=== PATIENT | female | born 1935 | race Caucasian/White ===

== ENCOUNTER → 2017-04-15 | Outpatient (CLI) | payer MEDICARE, BC ==
--- NOTE | 2017-04-15 12:41 | CT ---
EXAMINATION TYPE: CT chest wo con DATE OF EXAM: 04/15/2017 11:54 AM COMPARISON: 10/28/2016 and 10/17/2014 HISTORY: 82-year-old female follow up nodules. Coughing and shortness of breath. TECHNIQUE: Contiguous axial scanning of the chest without IV contrast. Coronal and sagittal reconstru ctions performed. CT DLP: 180.1 mGycm Automated exposure control for dose reduction was used. FINDINGS: The heart is normal size without pericardial effusion. Coronary vessel calcifications are remarkable for coronary artery disease. Mild atherosclerotic arch calcifications with conventional arch vessel branching anatomy. No thoracic lymphadenopathy by CT size criteria. Subpleural groundglass and interstitial changes particularly in the right lower lobe at the midlung l evel with minimal subpleural reticulations peripheral left upper lobe remain unchanged from 4. Biapical pleural parenchymal scarring also unchanged. The previously seen inferior lingular nodules have resolved. No new consolidation or pleural effusion. Visualized upper abdomen shows moderate atherosclerotic calcifications within the abdominal aorta and cholecystectomy clips. Bones: Right shoulder arthroplasty with the patient's right arm down. The humeral head component appe ars anteriorly subluxed articulating with the coracoid process. Degenerative changes at the left shou lder. No osseous destructive process. IMPRESSION: 1. THE PREVIOUSLY SEEN INFERIOR LINGULAR NODULES HAVE RESOLVED. 2. THE EXTENSIVE INTERSTITIAL CHANGES PREDOMINANTLY IN THE RIGHT MIDLUNG REMAIN UNCHANGED FROM 2013 COMPATIBLE WITH CHRONIC POST INFECTIOUS/INFLAMMATORY SEQUELA. NO ACUTE PULMONARY PROCESS. 3. RIGHT TOTAL SHOULDER ARTHROPLASTY. NOTE THAT THE HUMERAL HEAD COMPONENT IS ANTERIORLY SUBLUXED/DIS LOCATED, ARTICULATING WITH THE CORACOID PROCESS.
== END | disposition home or self-care (01) ==
LOC: RADCTMAIN 11:36
PROVIDERS: ATTEND Internal Medicine Pulmonary Disease
DX: R91.8 Other nonspecific abnormal finding of lung field (principal)
CPT/HCPCS: 71250

== ENCOUNTER → 2017-12-09 | Outpatient (CLI) | payer BC, MEDICARE ==
--- NOTE | 2017-12-09 12:30 | CT ---
EXAMINATION TYPE: CT chest wo con DATE OF EXAM: 12/09/2017 COMPARISON: 04/15/2017 and 10/17/2014 HISTORY: Pulmonary Nodule CT DLP: 353 mGycm. Automated Exposure Control for Dose Reduction was Utilized. TECHNIQUE: CT scan of the thorax is performed without IV contrast. FINDINGS: LUNGS: As discussed on the prior exam the subpleural reticular and groundglass opacities within the r ight lung apex, right upper lobe and right lower lobe are unchanged dating back to 2013 and likely re present fibrosis. Left apical pleural parenchymal scarring is also seen. No new pulmonary nodules are identified. The lungs are grossly clear, there is no concerning parenchymal mass or nodule identifie d. There is no pleural effusion or pneumothorax seen. The tracheobronchial tree is patent. MEDIASTINUM: Lack of IV contrast is noted to limit evaluation for mediastinal and especially hilar ad enopathy. There are no definitive greater than 1 cm hilar or mediastinal lymph nodes. No cardiomega ly or pericardial effusion is seen. Heart is normal limits of size. Moderate coronary artery calcific ations are noted. OTHER: There is overall low attenuation of the ascending thoracic aorta internally which can be indic ative of anemia. Correlation with CBC is recommended. Cholecystectomy clips are noted within the righ t upper quadrant. Right shoulder arthroplasty is again noted. Anterior subluxation is chronic. Degene rative changes of the left glenohumeral joint and thoracic spine are similar to the prior. No new waleska picious osseous lesion. IMPRESSION: 1. No new pulmonary nodules or adenopathy given the limitation of lack of intravenous contrast. 2. Subpleural reticular interstitial opacities unchanged from 2013 are favored to represent pulmonary fibrosis. 3. Aortic luminal low density may indicate anemia. Correlate with CBC. 4. Anterior subluxation of the right shoulder arthroplasty, unchanged from the prior of 04/15/2017.
== END | disposition home or self-care (01) ==
LOC: RADCTMAIN 11:20
PROVIDERS: ATTEND Internal Medicine Pulmonary Disease
DX: J98.4 Other disorders of lung (principal); S43.081A Other subluxation of right shoulder joint, initial encounter; R91.8 Other nonspecific abnormal finding of lung field
CPT/HCPCS: 71250

== ENCOUNTER → 2018-01-07 | Outpatient (CLI) | payer MEDICARE ==
--- NOTE | 2018-01-08 11:45 | ECHOF ---
Referral Reason:Fatigue R53.83 MEASUREMENTS -------- HEIGHT: 165.1 cm WEIGHT: 54.4 kg BP: RVIDd: 3.0 cm (< 3.3) IVSd: 1.0 cm (0.6 - 1.1) LVIDd: 3.7 cm (3.9 - 5.3) LVPWd: 0.9 cm (0.6 - 1.1) IVSs: 1.3 cm LVIDs: 3.4 cm LVPWs: 1.3 cm LAESV Index (A-L): 28.19 ml/m Ao Diam: 3.3 cm (2.0 - 3.7) AV Cusp: 1.3 cm (1.5 - 2.6) LA Diam: 2.6 cm (2.7 - 3.8) MV EXCURSION: 17.484 mm (> 18.000) MV EF SLOPE: 85 mm/s (70 - 150) EPSS: 1.1 cm MV E Marquez: 0.64 m/s MV DecT: 159 ms MV A Marquez: 0.83 m/s MV E/A Ratio: 0.77 RAP: 5.00 mmHg RVSP: 30.18 mmHg FINDINGS -------- Sinus rhythm. This was a technically good study. The left ventricular size is normal. There is mild concentric left ventricular hypertrophy. Overa ll left ventricular systolic function is low-normal with, an EF between 50 - 55 %. The right ventricle is normal in size. Normal LA size by volume 22+/-6 ml/m2. The right atrial size is normal. There is mild aortic valve sclerosis. Mild mitral annular calcification present. Mild mitral regurgitation is present. Mild tricuspid regurgitation present. There is no evidence of pulmonary hypertension. The right v entricular systolic pressure, as measured by Doppler, is 30.18mmHg. There is no pulmonic regurgitation present. The aortic root size is normal. There is no pericardial effusion. CONCLUSIONS -------- 1. Sinus rhythm. 2. This was a technically good study. 3. The left ventricular size is normal. 4. There is mild concentric left ventricular hypertrophy. 5. Overall left ventricular systolic function is low-normal with, an EF between 50 - 55 %. 6. Normal LA size by volume 22+/-6 ml/m2. 7. There is mild aortic valve sclerosis. 8. Mild mitral annular calcification present. 9. Mild mitral regurgitation is present. 10. Mild tricuspid regurgitation present. 11. There is no evidence of pulmonary hypertension. 12. There is no pulmonic regurgitation present. 13. The aortic root size is normal. 14. There is no pericardial effusion. PRODUCTION OPERATIONS ENGINEER: Gunjan Chapin RDCS
== END | disposition home or self-care (01) ==
LOC: RADECHMAIN 13:06
PROVIDERS: ATTEND Family Medicine
DX: I08.3 Combined rheumatic disorders of mitral, aortic and tricuspid valves (principal); Z88.5 Allergy status to narcotic agent; Z88.8 Allergy status to other drugs, medicaments and biological substances
CPT/HCPCS: 93306

== ENCOUNTER 2018-12-27 17:40 | Emergency (ER) | payer MEDICARE, BC ==
[2018-12-27 17:55] VITALS: TEMP 98.3
--- NOTE | 2018-12-27 18:16 | ED ---
General Adult HPI - General Chief complaint: Fall Stated complaint: Fall from being dizzy, head lac Time Seen by Provider: 12/27/18 18:02 Source: patient, family, RN notes reviewed, old records reviewed Mode of arrival: wheelchair Limitations: no limitations - History of Present Illness Initial comments: 83-year-old female presents status post ground-level fall. Patient fell hit her head on a rocking chair. No loss consciousness. Patient is on anticoagulation, currently taking Xarelto, history of DVT. Patient denies significant neck pain. She ambulated after the fall. She is complaining of some mild pain in her left hip. No other injuries reported. No vision changes. No focal numbness or weakness. No chest pain. Patient is on home oxygen, she states she has history of dizzy spells, this is not new. She was not wearing oxygen at the time of the fall, she believes this may have contributed. - Related Data Home Medications Medication Instructions Recorded Confirmed Famotidine [Pepcid] 20 mg PO BID 06/18/15 12/27/18 Levothyroxine Sodium [Synthroid] 125 mcg PO DAILY 06/18/15 12/27/18 Rivaroxaban [Xarelto] 20 mg PO DAILY 06/18/15 12/27/18 Allergies Allergy/AdvReac Type Severity Reaction Status Date / Time morphine Allergy Unknown Verified 12/27/18 19:01 nickel Allergy Unknown Verified 12/27/18 19:01 Review of Systems ROS Statement: Those systems with pertinent positive or pertinent negative responses have been documented in the HPI. ROS Other: All systems not noted in ROS Statement are negative. Past Medical History Past Medical History: Syncope Additional Past Medical History / Comment(s): PE, pulmonary fibrosis History of Any Multi-Drug Resistant Organisms: None Reported Past Surgical History: Adenoidectomy, Back Surgery, Joint Replacement, Orthopedic Surgery, Tonsillectomy Additional Past Surgical History / Comment(s): thyroid Past Psychological History: No Psychological Hx Reported Smoking Status: Never smoker Past Alcohol Use History: None Reported Past Drug Use History: None Reported General Exam Limitations: no limitations General appearance: alert, in no apparent distress Head exam: Present: normocephalic. Absent: atraumatic (1 cm laceration, left forehead) Eye exam: Present: normal appearance, PERRL, EOMI ENT exam: Present: normal exam, TM's normal bilaterally Neck exam: Present: normal inspection, full ROM. Absent: tenderness, meningismus Respiratory exam: Present: normal lung sounds bilaterally. Absent: respiratory distress, wheezes Cardiovascular Exam: Present: regular rate, normal rhythm GI/Abdominal exam: Present: soft. Absent: distended, tenderness Extremities exam: Present: normal inspection, normal capillary refill. Absent: pedal edema Back exam: Present: normal inspection, full ROM Neurological exam: Present: alert, oriented X3, CN II-XII intact. Absent: motor sensory deficit Psychiatric exam: Present: normal affect, normal mood Skin exam: Present: warm, dry, other (1 cm laceration, left forehead) Course Vital Signs 12/27/18 17:52 Temperature 98.3 F Pulse Rate 77 Respiratory 18 Rate Blood Pressure 153/72 O2 Sat by Pulse 100 Oximetry Procedures - Laceration Laceration #1 Consent Obtained: verbal consent Indication: laceration Site: scalp Description: linear Depth: simple, single layer Anesthetic Used: lidocaine 1% Anesthesia Technique: local infiltration Amount (mls): 5 Pre-repair: wound explored, irrigated extensively Type of Sutures: nylon Size of Sutures: 6-0 Number of Sutures: 3 Technique: simple, interrupted Patient Tolerated Procedure: well Medical Decision Making - Medical Decision Making 83-year-old female status post fall with head injury, no loss consciousness, patient is on anticoagulation, history of DVT. Head CT obtained, negative for intracranial hemorrhage or mass effect, CT cervical spine negative for fracture subluxation. X-ray of the pelvis is obtained as patient had some minor left hip pain, this is negative for acute bony abnormality. 3 sutures are placed in laceration. Patient tolerates procedure well. Antibiotic dressing placed. Patient has family at home and can be observed in the next 24 hours. They will be discharged home at this time, return for suture removal in 5-7 days. Critical Care Time Critical Care Time: Yes Disposition Clinical Impression: Fall, Concussion, Laceration of forehead Disposition: HOME SELF-CARE Condition: Stable Instructions (If sedation given, give patient instructions): Fall Prevention for Older Adults (ED), Care For Your Stitches (ED), Laceration (ED), Concussion (ED) Additional Instructions: Please observed for alterations in mental status, vomiting, headache over the next 24 hours, return in 5-7 days for suture removal. Is patient prescribed a controlled substance at d/c from ED?: No Referrals: Stephen Harvey MD [Primary Care Provider] - 1-2 days Time of Disposition: 19:47
--- NOTE | 2018-12-27 18:45 | XR ---
EXAMINATION TYPE: XR pelvis AP view DATE OF EXAM: 12/27/2018 COMPARISON: NONE HISTORY: Fall. Pain. TECHNIQUE: Single view FINDINGS: Pelvic ring is intact. Proximal femurs and hip joints are intact. I see no fracture. Sacroi liac joints are intact. IMPRESSION: No acute abnormality of the pelvis.
--- NOTE | 2018-12-27 18:45 | CT ---
EXAMINATION TYPE: CT brain chaparrita wo con DATE OF EXAM: 12/27/2018 COMPARISON: CT brain 09/08/2017. CT cervical spine 02/26/2016. HISTORY: fall CT DLP: 1286.3 mGycm Automated exposure control for dose reduction was used. TECHNIQUE: CT scan of the head and cervical spine are performed without contrast. FINDINGS: There is cerebral cortical atrophy. There is no mass effect nor midline shift. There is n o sign of intracranial hemorrhage. Calvarium is intact. There is a few millimeter anterior subluxation of C3 in relation to C4. There is some fusion anomaly of C2 and C3 vertebral body. There is degenerative disc space narrowing in the cervical spine. There is no compression fracture. The skull base is intact. IMPRESSION: Cerebral atrophy. No acute intracranial abnormality. No change. Spondylotic changes in the cervical spine. No fracture seen. No change compared to old exam.
[2018-12-27] MEDS ORDERED: LIDOCAINE 1% INJ 10MG/ML (20 ML MDV) SQ ONE (18:52)
[2018-12-27 20:01] VITALS: BP 144/70; PULSE 76; RESP 16
== END 2018-12-27 19:59 | disposition home or self-care (01) ==
LOC: EC 17:40
DX: S06.0X0A Concussion without loss of consciousness, initial encounter (principal); S01.81XA Laceration without foreign body of other part of head, initial encounter; M25.552 Pain in left hip; R42 Dizziness and giddiness; Z86.718 Personal history of other venous thrombosis and embolism; Z86.711 Personal history of pulmonary embolism; Z99.81 Dependence on supplemental oxygen; Z79.01 Long term (current) use of anticoagulants; Z79.890 Hormone replacement therapy; Z79.899 Other long term (current) drug therapy; Z88.5 Allergy status to narcotic agent; Z88.8 Allergy status to other drugs, medicaments and biological substances; W19.XXXA Unspecified fall, initial encounter; W22.03XA Walked into furniture, initial encounter; Y92.009 Unspecified place in unspecified non-institutional (private) residence as the place of occurrence of the external cause
CPT/HCPCS: 72170; 72125; 70450; 99284; 12011; J2001

== ENCOUNTER 2019-04-07 23:51 | Inpatient (IN) | payer MEDICARE ==
--- NOTE | 2019-04-08 00:04 | ED ---
General Adult HPI <Virgil Ahuja - Last Filed: 04/08/19 01:04> <Roosevelt Arredondo - Last Filed: 04/08/19 03:54> - General Chief complaint: Fall Stated complaint: fall Time Seen by Provider: 04/07/19 23:55 - History of Present Illness Initial comments: Dictation was produced using [employer] dictation software. please excuse any grammatical, word or spelling errors. Chief Complaint: 83-year-old female past medical history of pulmonary embolus, pulmonary fibrosis sick. Presents after fall. History of Present Illness: Patient is a 83-year-old female. She was brought in by EMS. Patient allegedly tripped over her oxygen tubing. She fell backwards causing her to strike her head. Patient is a poor historian. She states that her left knee hurts her right hip hurts and her head hurts. Denies any neck pain. Patient denies any numbness and paresthesias to her extremities. Intrana angelika fentanyl by EMS. She is not sure if she lost consciousness. The ROS documented in this emergency department record has been reviewed and confirmed by me. Those systems with pertinent positive or negative responses have been documented in the HPI. All other systems are other negative and/or noncontributory. PHYSICAL EXAM: General Impression: Alert and oriented x3, not in acute distress, cachectic 6 HEENT: Normocephalic atraumatic, extra-ocular movements intact, pupils equal and reactive to light bilaterally, mucous membranes moist. Cardiovascular: Heart regular rate and rhythm, S1&S2 audible, no murmurs, rubs or gallops Chest: Lungs clear to auscultation bilaterally, no rhonchi, no wheeze, no rales Abdomen: Bowel sounds present, abdomen soft, non-tender, non-distended, no organomegaly Musculoskeletal: Pulses present and equal in all extremities, no peripheral edema, pain with flexion and extension of the left knee and manipulation of the right hip Motor: no focal deficits noted Neurological: CN II-XII grossly intact, no focal motor or sensory deficits noted Skin: Intact with no visualized rashes Psych: Normal affect and mood ED course: Old female presents with left knee, right hip and head pain status post mechanical fall. Vital signs upon arrival are within acceptable limits. Patient care signed out to Dr. Abbasi. EKG interpretation: Ventricular rate 70, normal sinus rhythm, [place] interval 142, care is 64, QTC 465. No [place] prolongation, no QTC prolongation, no ST or T-wave changes noted. Overall, this EKG is unremarkable (Virgil Ahuja) - Related Data Home Medications Medication Instructions Recorded Confirmed Famotidine [Pepcid] 20 mg PO BID 06/18/15 12/27/18 Levothyroxine Sodium [Synthroid] 125 mcg PO DAILY 06/18/15 12/27/18 Rivaroxaban [Xarelto] 20 mg PO DAILY 06/18/15 12/27/18 Allergies Allergy/AdvReac Type Severity Reaction Status Date / Time morphine Allergy Unknown Verified 04/08/19 00:06 nickel Allergy Unknown Verified 04/08/19 00:06 Review of Systems ROS Other: All systems not noted in ROS Statement are negative. <Virgil Ahuja - Last Filed: 04/08/19 01:04> ROS Other: All systems not noted in ROS Statement are negative. <Roosevelt Arredondo - Last Filed: 04/08/19 03:54> ROS Statement: Those systems with pertinent positive or pertinent negative responses have been documented in the HPI. Past Medical History Past Medical History: Syncope Additional Past Medical History / Comment(s): PE, pulmonary fibrosis History of Any Multi-Drug Resistant Organisms: None Reported Past Surgical History: Adenoidectomy, Back Surgery, Joint Replacement, Orthopedic Surgery, Tonsillectomy Additional Past Surgical History / Comment(s): thyroid Past Psychological History: No Psychological Hx Reported Smoking Status: Never smoker Past Alcohol Use History: None Reported Past Drug Use History: None Reported <Virgil Ahuja - Last Filed: 04/08/19 01:04> Course Vital Signs 04/07/19 04/08/19 23:59 02:34 Temperature 98.4 F 97.8 F Pulse Rate 80 84 Respiratory 18 17 Rate Blood Pressure 137/67 117/67 O2 Sat by Pulse 100 98 Oximetry Medical Decision Making - Lab Data Result diagrams: 04/08/19 00:30 04/08/19 00:30 <Virgil Ahuja - Last Filed: 04/08/19 01:04> - Lab Data Result diagrams: 04/08/19 00:30 04/08/19 00:30 <Roosevelt Arredondo - Last Filed: 04/08/19 03:54> - Medical Decision Making Receive this patient as a sign out, pending the results of her studies. The imaging studies show suspected infiltrate versus possible scarring. The patient does complain of having some dyspnea worse than her baseline, so given this will treat for suspected pneumonia. Case discussed with Dr. Harvey who will accept admission. (Roosevelt Arredondo) - Lab Data Lab Results 04/08/19 04/08/19 04/08/19 Range/Units 00:30 00:30 00:30 WBC 7.8 (3.8-10.6) k/uL RBC 3.94 (3.80-5.40) m/uL Hgb 11.4 (11.4-16.0) gm/dL Hct 36.7 (34.0-46.0) % MCV 93.1 (80.0-100.0) fL MCH 29.0 (25.0-35.0) pg MCHC 31.1 (31.0-37.0) g/dL RDW 13.3 (11.5-15.5) % Plt Count 208 (150-450) k/uL Neutrophils % 81 % Lymphocytes % 12 % Monocytes % 5 % Eosinophils % 1 % Basophils % 0 % Neutrophils # 6.3 (1.3-7.7) k/uL Lymphocytes # 1.0 (1.0-4.8) k/uL Monocytes # 0.4 (0-1.0) k/uL Eosinophils # 0.0 (0-0.7) k/uL Basophils # 0.0 (0-0.2) k/uL PT 12.5 H (9.0-12.0) sec INR 1.2 H (<1.2) Sodium 140 (137-145) mmol/L Potassium 4.4 (3.5-5.1) mmol/L Chloride 106 (98-107) mmol/L Carbon Dioxide 28 (22-30) mmol/L Anion Gap 6 mmol/L BUN 23 H (7-17) mg/dL Creatinine 0.62 (0.52-1.04) mg/dL Est GFR (CKD-EPI)AfAm >90 (>60 ml/min/1.73 sqM) Est GFR (CKD-EPI)NonAf 84 (>60 ml/min/1.73 sqM) Glucose 87 (74-99) mg/dL Calcium 8.7 (8.4-10.2) mg/dL Magnesium 1.9 (1.6-2.3) mg/dL Creatine Kinase 72 (30-135) U/L Urine Color Urine Appearance (Clear) Urine pH (5.0-8.0) Ur Specific [place] (1.001-1.035) Urine Protein (Negative) Urine Glucose (UA) (Negative) Urine Ketones (Negative) Urine Blood (Negative) Urine Nitrite (Negative) Urine Bilirubin (Negative) Urine Urobilinogen (<2.0) mg/dL Ur Leukocyte Esterase (Negative) Urine RBC (0-5) /hpf Urine WBC (0-5) /hpf Ur Squamous Epith Cells (0-4) /hpf Urine Bacteria (None) /hpf Urine Mucus (None) /hpf 04/08/19 Range/Units 01:33 WBC (3.8-10.6) k/uL RBC (3.80-5.40) m/uL Hgb (11.4-16.0) gm/dL Hct (34.0-46.0) % MCV (80.0-100.0) fL MCH (25.0-35.0) pg MCHC (31.0-37.0) g/dL RDW (11.5-15.5) % Plt Count (150-450) k/uL Neutrophils % % Lymphocytes % % Monocytes % % Eosinophils % % Basophils % % Neutrophils # (1.3-7.7) k/uL Lymphocytes # (1.0-4.8) k/uL Monocytes # (0-1.0) k/uL Eosinophils # (0-0.7) k/uL Basophils # (0-0.2) k/uL PT (9.0-12.0) sec INR (<1.2) Sodium (137-145) mmol/L Potassium (3.5-5.1) mmol/L Chloride (98-107) mmol/L Carbon Dioxide (22-30) mmol/L Anion Gap mmol/L BUN (7-17) mg/dL Creatinine (0.52-1.04) mg/dL Est GFR (CKD-EPI)AfAm (>60 ml/min/1.73 sqM) Est GFR (CKD-EPI)NonAf (>60 ml/min/1.73 sqM) Glucose (74-99) mg/dL Calcium (8.4-10.2) mg/dL Magnesium (1.6-2.3) mg/dL Creatine Kinase (30-135) U/L Urine Color Light Yellow Urine Appearance Cloudy H (Clear) Urine pH 5.5 (5.0-8.0) Ur Specific [place] 1.011 (1.001-1.035) Urine Protein Negative (Negative) Urine Glucose (UA) Negative (Negative) Urine Ketones Negative (Negative) Urine Blood Negative (Negative) Urine Nitrite Negative (Negative) Urine Bilirubin Negative (Negative) Urine Urobilinogen <2.0 (<2.0) mg/dL Ur Leukocyte Esterase Negative (Negative) Urine RBC 2 (0-5) /hpf Urine WBC 2 (0-5) /hpf Ur Squamous Epith Cells <1 (0-4) /hpf Urine Bacteria Rare H (None) /hpf Urine Mucus Rare H (None) /hpf Disposition <Virgil Ahuja - Last Filed: 04/08/19 01:04> Is patient prescribed a controlled substance at d/c from ED?: No <Roosevelt Arredondo - Last Filed: 04/08/19 03:54> Clinical Impression: Fall, Pneumonia Disposition: ADMITTED IP TO THIS HOSP Condition: Poor Referrals: Stephen Harvey MD [Primary Care Provider] - 1-2 days
[2019-04-08 00:53] LABS: INR 1.2 (<1.2); Prothrombin Time 12.5 sec (9.0-12.0)
[2019-04-08 01:01] LABS: Anion Gap 6 mmol/L; Basophils % (A) 0 %; Blood Urea Nitrogen 23 mg/dL (7-17); Calcium 8.7 mg/dL (8.4-10.2); Carbon Dioxide 28 mmol/L (22-30); Chloride 106 mmol/L (98-107); Creatine Kinase 72 U/L (30-135); Eosinophils % (A) 1 %; Glucose 87 mg/dL (74-99); HCT 36.7 % (34.0-46.0); HGB 11.4 gm/dL (11.4-16.0); Lymphocytes % (A) 12 %; MCHC 31.1 g/dL (31.0-37.0); MCV 93.1 fL (80.0-100.0); Magnesium 1.9 mg/dL (1.6-2.3); Mean Platelet Volume 7.2; Monocytes # (A) 0.4 k/uL (0-1.0); Monocytes % (A) 5 %; Neutrophils # (A) 6.3 k/uL (1.3-7.7); Neutrophils % (A) 81 %; Platelet Count 208 k/uL (150-450); Potassium 4.4 mmol/L (3.5-5.1); RBC 3.94 m/uL (3.80-5.40); RDW 13.3 % (11.5-15.5); Sodium 140 mmol/L (137-145); WBC 7.8 k/uL (3.8-10.6)
--- NOTE | 2019-04-08 01:08 | CT ---
EXAM: CT Head Without Intravenous Contrast CLINICAL HISTORY: None. TECHNIQUE: Axial computed tomography images of the head/brain without intravenous contrast. CTDI is 0.085, 0.085, 45.2, 7.5 mGy and DLP is 1318 mGy-cm. This CT exam was performed using one or more of the following dose reduction techniques: automated exposure control, adjustment of the mA and/or kV according to patient size, and/or use of iterative reconstruction technique. COMPARISON: No relevant prior studies available. FINDINGS: Brain: No acute infarct, hemorrhage, mass or edema. Chronic small vessel ischemic disease and senescent changes. Ventricles: Unremarkable. No ventriculomegaly. Bones/joints: Unremarkable. No acute fracture. Soft tissues: Unremarkable. Sinuses: Unremarkable as visualized. No acute sinusitis. Mastoid air cells: Minimal opacification of the left mastoid air cells. IMPRESSION: No acute findings. EXAM: CT Cervical Spine Without Intravenous Contrast CLINICAL HISTORY: None. TECHNIQUE: Axial computed tomography images of the cervical spine without intravenous contrast. CTDI is 0.085, 0.085, 45.2, 7.5 mGy and DLP is 1318 mGy-cm. This CT exam was performed using one or more of the following dose reduction techniques: automated exposure control, adjustment of the mA and/or kV according to patient size, and/or use of iterative reconstruction technique. COMPARISON: No relevant prior studies available. FINDINGS: Vertebrae: No acute fracture or traumatic malalignment. Discs/spinal canal/neural foramina: Multilevel degenerative changes. Ankylosis of C2-3. No spinal canal stenosis. Soft tissues: Unremarkable. Vasculature: Vascular calcifications. Lung apices: Focal area of consolidation within the right and left upper lung which may be inflammatory or infectious versus scarring. Biapical pleural-parenchymal scarring. IMPRESSION: 1. No acute fracture or traumatic malalignment. 2. Focal area of consolidation within the right and left upper lung which may be inflammatory or infectious versus scarring.
--- NOTE | 2019-04-08 01:16 | XR ---
EXAM: XR Chest, 1 View CLINICAL HISTORY: Pain TECHNIQUE: Frontal view of the chest. COMPARISON: Chest x-ray dated 02/15/2014 FINDINGS: Lungs: Patchy airspace opacities through both lungs with probable consolidation within the lateral right midlung. Findings are concerning for inflammatory or infectious process. Pleural space: Unremarkable. No pneumothorax. Heart: Unremarkable. No cardiomegaly. Mediastinum: Unremarkable. Bones/joints: Right shoulder arthroplasty. IMPRESSION: Patchy airspace opacities through both lungs with probable consolidation within the lateral right midlung. Findings are concerning for inflammatory or infectious process.
--- NOTE | 2019-04-08 01:17 | XR ---
EXAM: XR Pelvis, 1 or 2 Views CLINICAL HISTORY: Pain TECHNIQUE: Frontal view of the pelvis. COMPARISON: No relevant prior studies available. FINDINGS: Bones/joints: Unremarkable. No acute fracture. No dislocation. Soft tissues: Unremarkable. Calcification seen inferior to the left pubic ramus. IMPRESSION: No acute findings.
[2019-04-08 01:58] LABS: Appearance,Urine Cloudy (Clear); Bacteria,Urine Rare /hpf; Bilirubin,Urine Negative (Negative); Blood,Urine Negative (Negative); Color,Urine Light Yellow; Glucose,Urine (UA) Negative (Negative); Ketones,Urine Negative (Negative); Leukocyte Esterase,Urine Negative (Negative); Mucus,Urine Rare /hpf; Nitrite,Urine Negative (Negative); PH, Urine 5.5 (5.0-8.0); Protein,Urine Negative (Negative); RBC,Urine 2 /hpf (0-5); Specific Gravity,Urine 1.011 (1.001-1.035); Squamous Epithelial Cell,Urine <1 /hpf (0-4); Urobilinogen,Urine <2.0 mg/dL (<2.0)
[2019-04-08] MEDS ORDERED: ACETAMINOPHEN TAB 325 MG TAB PO STA (03:26)
[2019-04-08] MEDS ORDERED: PNEUMONIA PROTOCOL UTILIZED 1 EACH MISC PO PRN (03:32)
[2019-04-08] MEDS ORDERED: AZITHROMYCIN 500 MG TAB PO STA (03:45)
[2019-04-08] MEDS: SODIUM CHLORIDE 0.9% 1,000 ML IV SCH (04:20)
[2019-04-08] MEDS: LEVOTHYROXINE 125 MCG TAB PO SCH (06:21)
[2019-04-08] MEDS: RIVAROXABAN 20 MG TAB PO SCH (08:11)
[2019-04-08] MEDS: FAMOTIDINE 20 MG TAB PO SCH ×2 (08:11→20:30)
--- NOTE | 2019-04-08 14:49 | HP ---
HISTORY AND PHYSICAL CHIEF COMPLAINT: Fall with generalized weakness and debility with possible pneumonitis. HISTORY OF PRESENT ILLNESS: This is another admission for this 83-year-old white female who has diffuse interstitial fibrosis and is becoming more and more weak at home as she becomes less and less able to manage affairs and take care of her who also is debilitated with dementia. She apparently fell and came to the emergency room, but there was no evidence of any injuries. She is weak and she has been getting progressively getting progressively more unstable. It is probably not safe for the two of them to live home by themselves any longer. REVIEW OF SYSTEMS: She denies any focal neurologic deficits, change in vision or hearing, chest pain, cough, hemoptysis, orthopnea, PND, abdominal pain, nausea, vomiting, melena, hematochezia, renal failure, incontinence, etc. Past medical history, family history, personal and social histories reveal that she is allergic to NICKEL and MORPHINE. She is on potassium, Pepcid, Xarelto 20 mg once a day, folic acid, levothyroxine 0.0125, omeprazole, with stasis, ophthalmic emulsion, montelukast, Qvar, B12, isosorbide dinitrate, and calcium. The remainder of her history is unremarkable. She does not smoke or drink. She has had a history of pulmonary emboli and she has had a compression in the past. PHYSICAL EXAMINATION: Blood pressure 118/72 with a pulse of 82, respirations of 36 and she is afebrile. In general, she appeared to be frail, pale and slightly dehydrated. Skin was dry. Head, ears, eyes, nose, mouth, and throat were normal. Neck veins not distended. Carotids are normal. Chest is clear. Cardiac exam demonstrated what sounded like sinus rhythm with no S3, S4. The abdomen is soft and nontender. Extremities are normal. She did have some decreased range of motion in the shoulders. She is admitted to the hospital with diagnoses: 1. Fall. 2. General debility. 3. Diffuse interstitial fibrosis. 4. History of pulmonary embolism. .. 5. Hypothyroidism. PLAN: 1. Bed rest. 2. IV fluids. 3. Monitor the neurologic status and vital signs. 4. Pulmonology referral. MMODL / IJN: [id number] /
[2019-04-08] MEDS: CALCIUM CARBONATE 500 MG CHEWABLE PO SCH (20:30)
[2019-04-09] MEDS: ACETAMINOPHEN TAB 325 MG TAB PO PRN ×2 (01:41→23:03)
[2019-04-09] MEDS: SODIUM CHLORIDE 0.9% 1,000 ML IV SCH ×2 (04:56→23:50)
[2019-04-09] MEDS: LEVOTHYROXINE 125 MCG TAB PO SCH (05:37)
[2019-04-09] MEDS: CEFDINIR 300 MG CAP PO SCH ×2 (05:37→17:17)
[2019-04-09] MEDS: AZITHROMYCIN 500 MG TAB PO SCH (05:59)
[2019-04-09] MEDS: FOLIC ACID 1 MG TAB PO SCH (08:05)
[2019-04-09] MEDS: RIVAROXABAN 20 MG TAB PO SCH (08:05)
[2019-04-09] MEDS: FAMOTIDINE 20 MG TAB PO SCH ×2 (08:05→20:14)
[2019-04-09] MEDS: CALCIUM CARBONATE 500 MG CHEWABLE PO SCH ×2 (08:05→20:14)
--- NOTE | 2019-04-09 08:21 | XR ---
EXAMINATION TYPE: XR chest 2V DATE OF EXAM: 04/09/2019 COMPARISON: 04/08/2019 TECHNIQUE: PA and lateral views submitted. HISTORY: Shortness of breath FINDINGS: Hyperinflation compatible COPD. There is patchy areas of infiltrate bilaterally. Vague nodular densit y left upper lobe. Diffuse osteopenia. Postsurgical change involving the right shoulder and gallbladd er fossa. No pleural effusion. Coarsened interstitium. Atherosclerotic change aorta. IMPRESSION: 1. Patchy bilateral infiltrates greater on the right is stable correlate for pneumonia. Follow to res olution to exclude underlying neoplasm. 2. COPD. 3. Vague nodular density left upper lobe follow-up to resolution otherwise consider CT chest.
--- NOTE | 2019-04-09 20:54 | PN ---
PROGRESS NOTE CHIEF COMPLAINT: Weakness, dehydration, pneumonia. HISTORY OF PRESENT ILLNESS: This lady remains extremely weak and dizzy. Whenever she tries to get up, she loses her balance. She has not had a fever and she is not complaining of any shortness of breath. PHYSICAL EXAMINATION: She is afebrile. Blood pressure is 113/60. In general she appears to be dehydrated, cachectic and weak. The chest is clear at this time. The cardiac exam is normal. The abdomen is soft and non-tender. IMPRESSION: 1. Pneumonitis. 2. Frequent falling. 3. General debility. 4. Dehydration. 5. Weakness. PLAN: Continue with rehydration and physical therapy while looking at a discharge plan. MMODL / IJN: [id number] /
[2019-04-10] MEDS: LEVOTHYROXINE 125 MCG TAB PO SCH (06:22)
[2019-04-10] MEDS: CEFDINIR 300 MG CAP PO SCH ×2 (06:22→18:03)
[2019-04-10] MEDS: AZITHROMYCIN 500 MG TAB PO SCH (06:22)
[2019-04-10] MEDS: FAMOTIDINE 20 MG TAB PO SCH ×2 (07:52→20:11)
[2019-04-10] MEDS: CALCIUM CARBONATE 500 MG CHEWABLE PO SCH ×2 (07:52→20:09)
[2019-04-10] MEDS: FOLIC ACID 1 MG TAB PO SCH (07:52)
[2019-04-10] MEDS: RIVAROXABAN 20 MG TAB PO SCH (07:52)
[2019-04-10] MEDS: ACETAMINOPHEN TAB 325 MG TAB PO PRN ×2 (10:28→20:09)
--- NOTE | 2019-04-10 19:57 | PN ---
PROGRESS NOTE CHIEF COMPLAINT: Pneumonitis, fall and general debility. HISTORY OF PRESENT ILLNESS: This lady is doing slightly better. She is still very weak and she is unsteady. She is able to walk 20 or 30 feet in the cherry with a nurse, but she is slightly ataxic. Earlier today, she wanted to go home, but now she feels more unsteady. She is refusing rehab and we will probably let her go home tomorrow and set her up with home nursing and physical therapy. PHYSICAL EXAM: She remains quite asthenic. Chest demonstrates scattered vesicular breath sounds and rales. Cardiac exam is normal. IMPRESSION: 1. General debility and weakness. 2. Diffuse interstitial fibrosis. 3. Ataxia. 4. Possible pneumonitis. PLAN: Probably send home with home care tomorrow. MMGUTIERREZL / ANNALISAN: [id number] /
[2019-04-11] MEDS: SODIUM CHLORIDE 0.9% 1,000 ML IV SCH (00:16)
[2019-04-11] MEDS: CEFDINIR 300 MG CAP PO SCH (05:57)
[2019-04-11] MEDS: AZITHROMYCIN 500 MG TAB PO SCH (05:57)
[2019-04-11] MEDS: LEVOTHYROXINE 125 MCG TAB PO SCH (05:57)
[2019-04-11] MEDS: RIVAROXABAN 20 MG TAB PO SCH (09:08)
[2019-04-11] MEDS: CALCIUM CARBONATE 500 MG CHEWABLE PO SCH (09:08)
[2019-04-11] MEDS: FAMOTIDINE 20 MG TAB PO SCH (09:08)
[2019-04-11] MEDS: FOLIC ACID 1 MG TAB PO SCH (09:08)
[2019-04-11] MEDS: ACETAMINOPHEN TAB 325 MG TAB PO PRN (09:13)
[2019-04-11 15:55] VITALS: BP 138/60; PULSE 63; RESP 18; TEMP 96.5
== END 2019-04-11 16:21 | disposition home health service (06) | DRG 195 ==
LOC: EC 23:51 → 4MS4W 04-08 03:33 → 4SSUR 04-08 17:50
PROVIDERS: ADMIT Family Medicine; ATTEND Family Medicine
DX: J18.9 Pneumonia, unspecified organism (principal); E86.0 Dehydration; J84.10 Pulmonary fibrosis, unspecified; Z79.01 Long term (current) use of anticoagulants; Z79.890 Hormone replacement therapy; Z86.711 Personal history of pulmonary embolism; Z91.81 History of falling; Z88.5 Allergy status to narcotic agent; E03.9 Hypothyroidism, unspecified; R53.81 Other malaise; Z79.899 Other long term (current) drug therapy
CPT/HCPCS: 36415; 70450; 71045; 71046; 72125; 72170; 80048; 81001; 82550; 83735; 85025; 85610; 87040; 93005; 94760; 99285

== ENCOUNTER 2019-05-03 14:31 | Emergency (ER) | payer MEDICARE ==
[2019-05-03 15:03] VITALS: RESP 18
--- NOTE | 2019-05-03 15:45 | CT ---
EXAMINATION TYPE: CT brain chaparrita smith con DATE OF EXAM: 05/03/2019 COMPARISON: 04/08/2019 HISTORY: 84-year-old female fall with head injury CT DLP: 1196.1 mGycm Automated exposure control for dose reduction was used. Technique: Examination of the head was done in axial plane without intravenous contrast. Coronal and sagittal reconstructions performed. CT of the cervical spine was obtained in axial plane without intravenous injection of contrast mater ial. Coronal and sagittal reformatted images were obtained from the axial views for evaluation of f ractures, spinal alignment and canal. FINDINGS: Head: There is no evidence of acute intracranial hemorrhage, acute ischemic changes, mass, mass-effect, or extra-axial fluid collection. There is no effacement of cerebral sulci or basal subarachnoid cister ns. There is no midline shift. Xavier-white matter distinction is preserved. Mild to moderate generalized supratentorial volume loss and mild periventricular white matter hypoden sities. Benign ganglionic calcifications on the left. Mild ventriculomegaly likely secondary to central cereb ral atrophy. Atherosclerotic calcifications bilateral carotid siphons. Orbits and globes are intact. Rightward nasal septal deviation. Paranasal sinuses well pneumatized. S mall amount of trapped fluid in inferior left mastoid air cells unchanged from 04/08/2019. Cervical spine: No craniocervical junction abnormality, predental space widening, or prevertebral soft tissue swellin g. Some degenerative changes at the C1 dens articulation. Possible congenital versus degenerative int erbody fusion of C2-C3 and C3-C4. Posterior osteophytic ridging at C3-C4 contributes to a mild spinal canal stenosis. Multilevel facet and uncovertebral joint arthropathy. Grade 1 retrolisthesis at C5-C6. Grade 1 anterolisthesis at T2-T3. Remaining alignment maintained. No acute fracture of the cervical spine. Variable mild neuroforaminal narrowing. Sagittal and coronal reformatted images confirm above findings. COMBINED IMPRESSION: 1. [id number] generalized atrophy without acute intracranial abnormality seen. 2. Moderate spondylotic change. Degenerative versus congenital interbody ankylosis of C2-C3 and C3-C4 . Grade 1 retrolisthesis at C5-C6 and anterolisthesis at T2-T3. No acute fracture seen of the cervica l spine.
--- NOTE | 2019-05-03 16:42 | XR ---
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 There is the appearance of anterior dislocation at the glenohumeral joint with prior right shoulder a rthroplasty. There appears to be chronic remodeling and thinning of the coracoid process. No acute fr acture identified. Thoracic spine: Osteopenia. Accentuated mid thoracic kyphosis. Mild T12 superior endplate deformity. There is new fro m 04/09/2019. Minimal anterior wedging of T9 also seems to be new from that time. Alignment appears ma intained. Lumbar spine: Hypertrophic facet arthropathy throughout with grade 1/grade 2 anterolisthesis at L4-L5. Vertebral lashawn dy heights are preserved. Moderate degenerative disc disease, more moderately advanced at L4-L5 and L 5-S1. IMPRESSION: 1. Right shoulder: Chronic remodeling and thinning of the coracoid process may reflect chronic rather than acute anterior dislocation of the prosthetic glenohumeral joint. No acute fracture identified. 2. Thoracic spine: Mild superior endplate deformity at T12 and minimal anterior wedging of T9 seem to be new from 04/09/2019. Correlate for focal pain at these levels. Accentuated mid thoracic kyphosis w ithout malalignment. 3. Lumbar spine: Hypertrophic facet arthropathy with moderate to advanced degenerative disc disease l ower lumbar spine and grade 1/grade 2 anterolisthesis at L4-L5. No vertebral compression collapse.
--- NOTE | 2019-05-03 17:58 | ED ---
Fall HPI - General Chief Complaint: Fall Stated Complaint: Fall Time Seen by Provider: 05/03/19 15:05 Source: patient, EMS Mode of arrival: EMS - History of Present Illness Initial Comments: 84-year-old female presenting today for chief complaint of fall x 1 hour ago. She states that earlier today she attempted to get up from her recliner when she was stuck between the fireplace and the edge of the recliner. She states this caused her to fall backwards she hit the back of her head on the ground. Patient states she is on type coagulation therapy.. Patient states that she did not lose consciousness. Patient states that she has chronic right shoulder pain secondary to rotator cuff injury states it feels slightly patient were baseline however there is no decrease in baseline range of motion. Patient denies numbness tingling of the upper or lower extremities. Denies a loss sensation. Patient denies diplopia she denies headache she has nausea vomiting. Patient states she has chronic dizziness she denies any changes. Patient denied having a chest pain shortness of breath prior to falling. She states it was because she was stuck. Remaining review of systems negative upon arrival patient appears well vital signs within acceptable limits. Patient denies any lacerations or abrasions. - Related Data Home Medications Medication Instructions Recorded Confirmed Famotidine [Pepcid] 20 mg PO BID 06/18/15 05/03/19 Levothyroxine Sodium [Synthroid] 125 mcg PO DAILY 06/18/15 05/03/19 Rivaroxaban [Xarelto] 15 mg PO DAILY 06/18/15 05/03/19 Calcium Carbonate [Calcium] 2,400 mg PO DAILY 04/08/19 05/03/19 Folic Acid 1 mg PO DAILY 04/08/19 05/03/19 Omeprazole 20 mg PO DAILY 05/03/19 05/03/19 Potassium Chloride ER [K-Dur 20] 20 meq PO DAILY 05/03/19 05/03/19 Vit C/E/Zn/Coppr/Lutein/Zeaxan 2 cap PO DAILY 05/03/19 05/03/19 [Preservision Areds 2 Softgel] Allergies Allergy/AdvReac Type Severity Reaction Status Date / Time morphine Allergy Unknown Verified 05/03/19 15:52 nickel Allergy Unknown Verified 05/03/19 15:52 Review of Systems ROS Statement: Those systems with pertinent positive or pertinent negative responses have been documented in the HPI. ROS Other: All systems not noted in ROS Statement are negative. Past Medical History Past Medical History: Syncope Additional Past Medical History / Comment(s): PE, pulmonary fibrosis History of Any Multi-Drug Resistant Organisms: None Reported Past Surgical History: Adenoidectomy, Back Surgery, Joint Replacement, Orthopedic Surgery, Tonsillectomy Additional Past Surgical History / Comment(s): thyroid Past Anesthesia/Blood Transfusion Reactions: No Reported Reaction Past Psychological History: No Psychological Hx Reported Smoking Status: Never smoker Past Alcohol Use History: None Reported Past Drug Use History: None Reported - Past Family History Mother Family Medical History: Cancer General Exam - General Exam Comments Initial Comments: General: The patient is awake and alert, in no distress, and does not appear acutely ill. Eye: +3 mm pupils are equal, round and reactive to light, extra-ocular movements are intact. No nystagmus. There is normal conjunctiva bilaterally. No signs of icterus. Ears, nose, mouth and throat: There are moist mucous membranes and no oral lesions. No raccoon or Heaton sign. Tympanic membranes within normal limits. There is no tenderness to palpation of the cervical spine. Patient has tenderness to palpation around T2-T3. There is no tenderness to palpation of the lower thoracic or lumbar spine. There is no paravertebral tenderness of the thoracic or lumbar spine. This examination was performed after c-collar was removed. Neck: The neck is supple, there is no tenderness or JVD. Cardiovascular: There is a regular rate and rhythm. No murmur, rub or gallop is appreciated. Respiratory: Lungs are clear to auscultation, respirations are non-labored, breath sounds are equal. No wheezes, stridor, rales, or rhonchi. Gastrointestinal: Soft, non-distended, non-tender abdomen without masses or organomegaly noted. There is no rebound or guarding present. No CVA tenderness. Bowel sounds are unremarkable. Musculoskeletal: Normal ROM, no tenderness. Strength 5/5 at the elbows and wrists b/l. Sensation intact. Radial pulses equal bilaterally 2+. Small bruise on the posterior right shoulder Neurological: A&O x 3. CN II-XII intact, There are no obvious motor or sensory deficits. Coordination appears grossly intact. Speech is normal. No pronator drift. Ailrfe-el-fypx mood and coordinated. Heel to marie splint and coordinated. Skin: Skin is warm and dry and no rashes or lesions are noted. Psychiatric: Cooperative, appropriate mood & affect, normal judgment. Limitations: no limitations Course Vital Signs 05/03/19 05/03/19 14:56 18:00 Temperature 98.1 F 97.7 F Pulse Rate 74 70 Respiratory 18 18 Rate Blood Pressure 132/62 124/66 O2 Sat by Pulse 98 97 Oximetry Medical Decision Making - Medical Decision Making 84-year-old male presenting for mechanical fall. Patient hit back of head. Patient is on blood thinner. CT of the brain revealed no acute intracranial process or hemorrhage. Acute injury of the cervical or lumbar spine. Patient did have a noted which deformity at the endplate of T9 however patient does not have point localized tenderness in this area. Patient has no radicular symptoms. Patient has no upper or lower extremity weakness or sensation deficits. No focalized neurological deficits. Patient is dressed and states she is ready to go home now. Patient denied any symptoms such as chest pain shortness of breath or dizziness prior to falling. At this time I feel patient stay for discharge with outpatient primary care follow-up. Return parameters were discussed at length with palpation family who verbalized understanding. Patient was discharged. Will after discussing the case with my attending provider Dr. Jean-Baptiste Disposition Clinical Impression: Fall, Head injury, Back pain Disposition: HOME SELF-CARE Condition: Good Instructions (If sedation given, give patient instructions): Fall Prevention for Older Adults (ED), Head Injury (ED) Is patient prescribed a controlled substance at d/c from ED?: No Referrals: Stephen Harvey MD [Primary Care Provider] - 1-2 days Time of Disposition: 18:00
[2019-05-03 18:08] VITALS: BP 124/66; PULSE 70; TEMP 97.7
== END 2019-05-03 18:09 | disposition home or self-care (01) ==
LOC: EC 14:31
DX: S09.90XA Unspecified injury of head, initial encounter (principal); M54.9 Dorsalgia, unspecified; S40.011A Contusion of right shoulder, initial encounter; M43.8X4 Other specified deforming dorsopathies, thoracic region; R42 Dizziness and giddiness; Z88.5 Allergy status to narcotic agent; Z91.048 Other nonmedicinal substance allergy status; Z79.01 Long term (current) use of anticoagulants; Z79.890 Hormone replacement therapy; Z79.899 Other long term (current) drug therapy; Z86.711 Personal history of pulmonary embolism; Z98.890 Other specified postprocedural states; Z87.828 Personal history of other (healed) physical injury and trauma; W18.09XA Striking against other object with subsequent fall, initial encounter; Y93.89 Activity, other specified; Y92.009 Unspecified place in unspecified non-institutional (private) residence as the place of occurrence of the external cause
CPT/HCPCS: 70450; 72072; 72100; 72125; 99284

== ENCOUNTER 2019-07-18 13:03 | Emergency (ER) | payer MEDICARE ==
[2019-07-18 13:08] VITALS: TEMP 97.3
--- NOTE | 2019-07-18 13:15 | ED ---
General Adult HPI - General Chief complaint: Fall Stated complaint: Fall Time Seen by Provider: 07/18/19 13:05 Source: patient, EMS, RN notes reviewed Mode of arrival: EMS Limitations: no limitations - History of Present Illness Initial comments: This is an 84-year-old female presents emergency Department complaining that she fell while trying to help her up today. Patient states she hit her head on the cement she did not lose consciousness she was not days. Patient states she has a little tenderness to the scalp in the posterior occipital region. Patient states she is on Xarelto. Patient states she has a little bit of neck pain on the left but no midline neck pain. Patient denies numbness or weakness. Patient states she also has tenderness to the lateral aspect and posterior aspect of her left elbow. Patient states it hurts to bend fully. Patient states she can bend but it's painful. Patient denies any chest pain or back pa in. Patient also complains of some left groin pain with movement. Patient denies any knee or ankle pain. Patient denies any other issues at this time. - Related Data Home Medications Medication Instructions Recorded Confirmed Famotidine [Pepcid] 20 mg PO BID 06/18/15 07/18/19 Levothyroxine Sodium [Synthroid] 125 mcg PO DAILY 06/18/15 07/18/19 Rivaroxaban [Xarelto] 15 mg PO DAILY 06/18/15 07/18/19 Calcium Carbonate [Calcium] 2,400 mg PO DAILY 04/08/19 07/18/19 Folic Acid 1 mg PO DAILY 04/08/19 07/18/19 Omeprazole 20 mg PO DAILY 05/03/19 07/18/19 Potassium Chloride ER [K-Dur 20] 20 meq PO DAILY 05/03/19 07/18/19 Vit C/E/Zn/Coppr/Lutein/Zeaxan 2 cap PO DAILY 05/03/19 07/18/19 [Preservision Areds 2 Softgel] Cyanocobalamin [Vitamin B-12] 500 mcg PO DAILY 07/18/19 07/18/19 Allergies Allergy/AdvReac Type Severity Reaction Status Date / Time morphine Allergy Unknown Verified 07/18/19 13:37 nickel Allergy Unknown Verified 07/18/19 13:37 Review of Systems ROS Statement: Those systems with pertinent positive or pertinent negative responses have been documented in the HPI. ROS Other: All systems not noted in ROS Statement are negative. Past Medical History Past Medical History: Syncope Additional Past Medical History / Comment(s): PE, pulmonary fibrosis History of Any Multi-Drug Resistant Organisms: None Reported Past Surgical History: Adenoidectomy, Back Surgery, Joint Replacement, Orthopedic Surgery, Tonsillectomy Additional Past Surgical History / Comment(s): thyroid Past Anesthesia/Blood Transfusion Reactions: No Reported Reaction Past Psychological History: No Psychological Hx Reported Smoking Status: Never smoker Past Alcohol Use History: None Reported Past Drug Use History: None Reported - Past Family History Mother Family Medical History: Cancer General Exam - General Exam Comments Initial Comments: GENERAL: Patient is well-developed and well-nourished. Patient is nontoxic and well- hydrated and is in mild distress. ENT: Neck is soft and supple. No significant lymphadenopathy is noted. Oropharynx is clear. Moist mucous membranes. Neck has full range of motion without eliciting any pain. EYES: The sclera were anicteric and conjunctiva were pink and moist. Extraocular movements were intact and pupils were equal round and reactive to light. Eyelids were unremarkable. PULMONARY: Unlabored respirations. Good breath sounds bilaterally. No audible rales rhonchi or wheezing was noted. CARDIOVASCULAR: There is a regular rate and rhythm without any murmurs gallops or rubs. ABDOMEN: Soft and nontender with normal bowel sounds. No palpable organomegaly was noted. SKIN: Patient has a superficial skin tear on the left elbow NEUROLOGIC: Patient is alert and oriented x3. Cranial nerves II through XII are grossly intact. Motor and sensory are also intact. Normal speech, volume and content. Symmetrical smile. MUSCULOSKELETAL: Recent has tenderness to the inguinal area of the left leg with external rotation and hip flexion. Patient also has lateral and posterior tenderness of the left elbow and has significant pain with full flexion LYMPHATICS: No significant lymphadenopathy is noted PSYCHIATRIC: Normal psychiatric evaluation. Limitations: no limitations Course Vital Signs 07/18/19 13:04 Temperature 97.3 F L Pulse Rate 74 Respiratory 16 Rate Blood Pressure 146/64 O2 Sat by Pulse 99 Oximetry Medical Decision Making - Medical Decision Making X-ray of the elbow shows a positive anterior sail sign and because patient will be splinted and put in a sling. X-ray of the hip shows a possible rami fracture. Computed tomography scan to verify if there is are refractory does show a nondisplaced left-sided superior rami fracture. CT of the head neck shows no acute abnormality. Patient did state that narcotics make her sick so she would just go home on Tylenol and Aleve Disposition Clinical Impression: Fall, Elbow fracture, left, Closed fracture of superior pubic ramus, Closed head injury Disposition: ADMITTED IP TO THIS HOSP Instructions (If sedation given, give patient instructions): Fall Prevention for Older Adults (ED), Elbow Fracture (ED), Pelvic Fracture (ED) Additional Instructions: Patient should take Tylenol and Aleve for pain. Is patient prescribed a controlled substance at d/c from ED?: No Referrals: Stephen Harvey MD [Primary Care Provider] - 1-2 days Time of Disposition: 16:48
--- NOTE | 2019-07-18 13:52 | CT ---
EXAMINATION TYPE: CT brain cspine wo con DATE OF EXAM: 07/18/2019 COMPARISON: CT brain and cervical spine May 03, 2019 HISTORY: Headache and neck pain post fall injury today CT DLP: 1248.6 mGycm. Automated Exposure Control for Dose Reduction was Utilized. TECHNIQUE: CT scan of the head and cervical spine are performed without contrast. FINDINGS: There is no acute intracranial hemorrhage or midline shift identified. Diffuse ventricula r and sulcal prominence is redemonstrated. Low-attenuation in the periventricular white matter is ag ain seen. The calvarium is intact. The globes are intact and the visualized sinuses are clear. Cervical spine is visualized in its entirety from C1 through upper thoracic levels and demonstrates p ersistent S-shaped scoliosis extending into the upper thoracic spine. Prevertebral soft tissue appea rs within normal limits. C1-C2 articulation is satisfactory on coronal images. There is some ossific fusion of the C3-C4 vertebra. There is advanced disc space narrowing C5-C6 level redemonstrated. Ther e is additional moderate disc space narrowing C4-C5 and C6-C7 levels. Spinal canal is grossly preserv ed. There is background chronic emphysematous change with multifocal peripheral fibrotic changes. The re is atherosclerotic and ectatic visualized aorta IMPRESSION: 1. There is no acute fracture or dislocation evident in the cervical spine. Scoliosis and multilevel degenerative changes. 2. No acute intracranial hemorrhage or midline shift is seen. There is moderate diffuse cerebral atro phy and chronic small vessel ischemic change redemonstrated.
--- NOTE | 2019-07-18 14:51 | XR ---
EXAMINATION TYPE: XR Hip LT and AP Pelvis DATE OF EXAM: 07/18/2019 COMPARISON: 04/08/2019 HISTORY: Pain TECHNIQUE: A single AP view of the pelvis is obtained. Two views of the left hip are obtained. FINDINGS: The pelvic ring appears intact. Proximal left femur and hip joint appear normal. There is n o sign of hip dysplasia. There is bone island in the proximal left femur. Sacroiliac joints appear no rmal. Hip joint spaces are fairly well-maintained. IMPRESSION: Negative pelvis and left hip exam. No change.
--- NOTE | 2019-07-18 14:53 | XR ---
EXAMINATION TYPE: XR elbow complete LT DATE OF EXAM: 07/18/2019 COMPARISON: None HISTORY: Pain TECHNIQUE: 3 views. FINDINGS: There is spurring on the olecranon process of the ulna. There is posterior soft tissue swelling. I se e no fracture nor dislocation. There is no evidence of joint effusion. IMPRESSION: Soft tissue swelling. Olecranon process spur formation. No fracture seen.
--- NOTE | 2019-07-18 15:39 | CT ---
EXAMINATION TYPE: CT hip LT wo con DATE OF EXAM: 07/18/2019 COMPARISON: None HISTORY: Fall. Left hip pain. CT DLP: 459.7 mGycm Automated exposure control for dose reduction was used. FINDINGS: Multiple axial sections were obtained from the iliac crest to the proximal shaft of the femur without contrast. FINDINGS: Left sacroiliac joint appears intact. Visualized sacrum appears intact. Segments have normal alignmen t. Acetabulum is intact. There is nondisplaced fracture of the left superior pubic ramus. Inferior pubic ramus shows no defini te fracture. The proximal femur is intact. There is mild subcutaneous edema over the posterior aspect of the left hip joint. Bladder distends smoothly. I see no evidence of pelvic hematoma. IMPRESSION: NONDISPLACED LEFT SUPERIOR PUBIC RAMUS FRACTURE. INTACT HIP JOINT.
[2019-07-18] MEDS ORDERED: HYDROmorphone 0.5 MG/0.5 ML SYRINGE IVP STA (16:08)
[2019-07-18] MEDS ORDERED: ONDANSETRON 4 MG/2 ML VIAL IVP STA (16:09)
[2019-07-18] MEDS ORDERED: ONDANSETRON ODT 4 MG TAB PO STA (16:11)
[2019-07-18] MEDS ORDERED: HYDROmorphone 1 MG/ML 1 ML SYRINGE IM STA (16:11)
[2019-07-18 17:09] VITALS: BP 158/84; PULSE 83; RESP 18
== END 2019-07-18 17:09 | disposition other institution (70) ==
LOC: EC 13:03
DX: S32.512A Fracture of superior rim of left pubis, initial encounter for closed fracture (principal); S42.402A Unspecified fracture of lower end of left humerus, initial encounter for closed fracture; S51.012A Laceration without foreign body of left elbow, initial encounter; S09.90XA Unspecified injury of head, initial encounter; Z79.01 Long term (current) use of anticoagulants; Z79.890 Hormone replacement therapy; Z79.899 Other long term (current) drug therapy; Z88.0 Allergy status to penicillin; Z91.048 Other nonmedicinal substance allergy status; Z90.89 Acquired absence of other organs; Z98.890 Other specified postprocedural states; Z86.711 Personal history of pulmonary embolism; W18.39XA Other fall on same level, initial encounter; Y93.F2 Activity, caregiving, lifting; Y92.009 Unspecified place in unspecified non-institutional (private) residence as the place of occurrence of the external cause
CPT/HCPCS: 73502; 73080; 72125; 70450; 73700; 96372; 99285; 29105; J1170

== ENCOUNTER → 2019-08-26 | Outpatient (CLI) | payer MEDICARE ==
--- NOTE | 2019-08-26 12:05 | CT ---
EXAMINATION TYPE: CT brain wo/w con DATE OF EXAM: 08/26/2019 COMPARISON: 07/18/2019 HISTORY: Altered mental status CT DLP: 2324 mGycm Automated exposure control for dose reduction was used. CONTRAST: CT scan of the head is performed without and with IV Contrast, patient injected with 100 mL of Isovue 300. FINDINGS: There is [id number] generalized degenerative change. There is low-attenuation the white matter which is nonspecific but most typical of microvascular ischemia. No midline shift or mass effect. No acute intracranial hemorrhage. Following administration of contrast there is no pathologic enhancement. Calvarium is intact. IMPRESSION: Degenerative and nonspecific white matter changes most typical remote microvascular ischemia.
== END | disposition home or self-care (01) ==
LOC: RADCTMAIN 10:17
PROVIDERS: ATTEND Family Medicine
DX: I67.82 Cerebral ischemia (principal); G31.1 Senile degeneration of brain, not elsewhere classified; R90.82 White matter disease, unspecified; R41.82 Altered mental status, unspecified; Z88.2 Allergy status to sulfonamides; Z88.5 Allergy status to narcotic agent; Z88.8 Allergy status to other drugs, medicaments and biological substances
CPT/HCPCS: 70470; Q9967

== ENCOUNTER 2019-09-18 20:58 | Inpatient (IN) | payer MEDICARE ==
[2019-09-18] MEDS ORDERED: Acetaminophen-Codeine 300-30mg TAB PO STA (21:24)
--- NOTE | 2019-09-18 21:28 | ED ---
Fall HPI - General Chief Complaint: Fall Stated Complaint: Fall Time Seen by Provider: 09/18/19 21:00 Source: patient, EMS Mode of arrival: EMS - History of Present Illness Initial Comments: This patient is an 84-year-old woman who comes to be evaluated after she had a fall at home in her kitchen tonight. The patient believes she tripped. She does have history of frequent falls. She struck the side of her head on a counter resulting in laceration. No loss consciousness. She complains of head and neck pain. MD Complaint: fall -: hour(s) Fall From: standing When Fall Occurred: [address] Fall Witnessed: yes, by family Place Fall Occurred: home Loss of Consciousness: none Prolonged Down Time?: no Symptoms Prior to Fall: none Context: history of frequent falls - Related Data Home Medications Medication Instructions Recorded Confirmed Famotidine [Pepcid] 20 mg PO BID 06/18/15 09/18/19 Calcium Carbonate [Calcium] 1,800 mg PO BID 04/08/19 09/18/19 Folic Acid 1 mg PO DAILY 04/08/19 09/18/19 Omeprazole 20 mg PO DAILY 05/03/19 09/18/19 Potassium Chloride ER [K-Dur 20] 20 meq PO DAILY 05/03/19 09/18/19 Vit C/E/Zn/Coppr/Lutein/Zeaxan 2 cap PO DAILY 05/03/19 09/18/19 [Preservision Areds 2 Softgel] Cyanocobalamin [Vitamin B-12] 500 mcg PO DAILY 07/18/19 09/18/19 Levothyroxine Sodium [Synthroid] 150 mcg PO DAILY 09/18/19 09/18/19 Rivaroxaban [Xarelto] 15 mg PO DAILY 09/18/19 09/18/19 busPIRone HCl [Buspar] 10 mg PO HS PRN 09/18/19 09/18/19 Allergies Allergy/AdvReac Type Severity Reaction Status Date / Time morphine Allergy Unknown Verified 09/18/19 21:39 nickel Allergy Unknown Verified 09/18/19 21:39 Review of Systems ROS Statement: Those systems with pertinent positive or pertinent negative responses have been documented in the HPI. ROS Other: All systems not noted in ROS Statement are negative. Eyes: Denies: eye pain, vision change ENT: Denies: ear pain, epistaxis Respiratory: Denies: cough, dyspnea Cardiovascular: Denies: chest pain, palpitations, syncope Gastrointestinal: Denies: abdominal pain, vomiting Genitourinary: Denies: dysuria, hematuria Musculoskeletal: Denies: back pain, joint swelling, arthralgia Skin: Denies: rash Neurological: Reports: as per HPI, headache. Denies: weakness, numbness, confusion Hematological/Lymphatic: Denies: easy bleeding Past Medical History Past Medical History: Syncope Additional Past Medical History / Comment(s): PE, pulmonary fibrosis History of Any Multi-Drug Resistant Organisms: None Reported Past Surgical History: Adenoidectomy, Back Surgery, Joint Replacement, Orthopedic Surgery, Tonsillectomy Additional Past Surgical History / Comment(s): thyroid Past Anesthesia/Blood Transfusion Reactions: No Reported Reaction Past Psychological History: No Psychological Hx Reported Smoking Status: Never smoker Past Alcohol Use History: None Reported Past Drug Use History: None Reported - Past Family History Mother Family Medical History: Cancer General Exam Limitations: no limitations General appearance: alert, in no apparent distress Head exam: Present: normocephalic, other (Contusion right temporal area. Approximate 2 cm curvilinear laceration right moravian area.) Eye exam: Present: normal appearance, PERRL, EOMI. Absent: scleral icterus, conjunctival injection ENT exam: Present: normal oropharynx Neck exam: Present: other (Cervical collar). Absent: tenderness Respiratory exam: Present: normal lung sounds bilaterally. Absent: respiratory distress, wheezes, rales, rhonchi, stridor, chest wall tenderness, accessory muscle use, decreased breath sounds, prolonged expiratory Cardiovascular Exam: Present: regular rate, normal rhythm, normal heart sounds. Absent: systolic murmur, diastolic murmur, rubs, gallop GI/Abdominal exam: Present: soft. Absent: distended, tenderness, guarding, rebound, rigid, mass Extremities exam: Present: normal inspection, normal capillary refill. Absent: pedal edema, calf tenderness Back exam: Present: normal inspection. Absent: CVA tenderness (R), CVA tenderness (L), vertebral tenderness Neurological exam: Present: alert, CN II-XII intact. Absent: motor sensory deficit Skin exam: Present: warm, dry, normal color. Absent: rash Course Vital Signs 09/18/19 09/18/19 09/18/19 21:03 21:40 22:10 Temperature 98.5 F Pulse Rate 87 Respiratory 16 Rate Blood Pressure 133/69 127/69 118/56 O2 Sat by Pulse 99 98 Oximetry 09/18/19 09/18/19 22:40 23:00 Temperature Pulse Rate Respiratory Rate Blood Pressure 144/71 144/71 O2 Sat by Pulse 100 97 Oximetry Procedures - Laceration Laceration #1 Consent Obtained: verbal consent Indication: laceration Site: scalp Description: linear Depth: simple, single layer Anesthetic Used: lidocaine 1% Anesthesia Technique: local infiltration Size of Sutures: other (Staple) Number of Sutures: 3 Technique: simple, interrupted Patient Tolerated Procedure: well, no complications Medical Decision Making - Medical Decision Making is an 84-year-old woman with history of frequent falls, presenting after a ground-level fall with pelvic pain. The patient does have left-sided pubic ramus fractures. Did compare with CT from July 18, and there are pubic ramus fractures there, the radiologist is reading the superior ramus fracture as a new. Patient expresses desire to go home, as her is there and sounds like he is hospice patient near end-of-life. We did attempt to accommodate her wish, but the patient is not able to bear weight due to pain. Given that patient did have fall and possibly new superior ramus fracture discussed case with Dr. Roque, regarding admission, and then medicine service consulting and may take over case of patient does require further placement. - Lab Data Result diagrams: 09/19/19 00:13 Lab Results 09/19/19 09/19/19 Range/Units 00:13 00:13 WBC 6.3 (3.8-10.6) k/uL RBC 3.22 L (3.80-5.40) m/uL Hgb 10.2 L (11.4-16.0) gm/dL Hct 31.4 L (34.0-46.0) % MCV 97.6 (80.0-100.0) fL MCH 31.6 (25.0-35.0) pg MCHC 32.4 (31.0-37.0) g/dL RDW 13.6 (11.5-15.5) % Plt Count 307 (150-450) k/uL Neutrophils % 71 % Lymphocytes % 19 % Monocytes % 7 % Eosinophils % 1 % Basophils % 1 % Neutrophils # 4.5 (1.3-7.7) k/uL Lymphocytes # 1.2 (1.0-4.8) k/uL Monocytes # 0.4 (0-1.0) k/uL Eosinophils # 0.0 (0-0.7) k/uL Basophils # 0.0 (0-0.2) k/uL Urine Color Light Yellow Urine Appearance Clear (Clear) Urine pH 5.5 (5.0-8.0) Ur Specific [place] 1.012 (1.001-1.035) Urine Protein Negative (Negative) Urine Glucose (UA) Negative (Negative) Urine Ketones Negative (Negative) Urine Blood Negative (Negative) Urine Nitrite Negative (Negative) Urine Bilirubin Negative (Negative) Urine Urobilinogen <2.0 (<2.0) mg/dL Ur Leukocyte Esterase Moderate H (Negative) Urine RBC 2 (0-5) /hpf Urine WBC 7 H (0-5) /hpf Ur Squamous Epith Cells <1 (0-4) /hpf Urine Bacteria Rare H (None) /hpf Disposition Clinical Impression: Fall, Pubic ramus fracture, Scalp laceration Disposition: ADMITTED IP TO THIS [facility] Condition: Poor Is patient prescribed a controlled substance at d/c from ED?: No Referrals: Stephen Harvey MD [Primary Care Provider] - 1-2 days
--- NOTE | 2019-09-18 22:13 | CT ---
EXAMINATION TYPE: CT brain chaparrita brady DATE OF EXAM: 09/18/2019 COMPARISON: CT scan 07/18/2019 HISTORY: Fall, head injury. CT DLP: 1182 mGycm Automated exposure control for dose reduction was used. TECHNIQUE: CT scan of the head and cervical spine are performed without contrast. FINDINGS: There is cerebral cortical atrophy. There is no mass effect nor midline shift. There is n o sign of intracranial hemorrhage. Cervical vertebra have fairly normal alignment. There is degenerative disc space narrowing at C2-3 C3 -4 C4-5. There is fusion anomaly of C2 and C3 vertebra and C4 vertebra. Facet joints are intact. . IMPRESSION: Cerebral atrophy. Spondylotic changes in the cervical spine. No acute intracranial abnormality. No fr acture. No change.
--- NOTE | 2019-09-18 22:15 | XR ---
EXAMINATION TYPE: XR pelvis AP view DATE OF EXAM: 09/18/2019 COMPARISON: 07/18/2019 HISTORY: Pain after falling TECHNIQUE: Single view FINDINGS: There is significant deformity of the left side pubic rami consistent with nondisplaced acu te fractures. There is no dislocation. Proximal femurs are intact. Sacroiliac joints are intact. IMPRESSION: Left superior and inferior pubic rami fractures with deformity is a change compared to ol d exam. No femoral fracture seen.
--- NOTE | 2019-09-18 22:17 | XR ---
EXAMINATION TYPE: XR chest 1V DATE OF EXAM: 09/18/2019 COMPARISON: 04/09/2019 HISTORY: Weakness. Fall. TECHNIQUE: Single frontal view of the chest is obtained. FINDINGS: Heart is normal. There is coarsening of the lung markings. There is no heart failure. Ther e is right shoulder prosthesis. Thoracic aorta is atheromatous. There is no pleural effusion or pneum othorax. IMPRESSION: Pulmonary fibrotic changes are more noticeable in the right upper lobe. No definite acut e lung disease. No change compared to old exam. No heart failure seen.
[2019-09-19 00:23] LABS: Basophils % (A) 1 %; Eosinophils % (A) 1 %; HCT 31.4 % (34.0-46.0); HGB 10.2 gm/dL (11.4-16.0); Lymphocytes # (A) 1.2 k/uL (1.0-4.8); Lymphocytes % (A) 19 %; MCH 31.6 pg (25.0-35.0); MCHC 32.4 g/dL (31.0-37.0); MCV 97.6 fL (80.0-100.0); Mean Platelet Volume 5.9; Monocytes # (A) 0.4 k/uL (0-1.0); Monocytes % (A) 7 %; Neutrophils # (A) 4.5 k/uL (1.3-7.7); Neutrophils % (A) 71 %; Platelet Count 307 k/uL (150-450); RBC 3.22 m/uL (3.80-5.40); RDW 13.6 % (11.5-15.5); WBC 6.3 k/uL (3.8-10.6)
[2019-09-19 00:24] LABS: Appearance,Urine Clear (Clear); Bacteria,Urine Rare /hpf; Bilirubin,Urine Negative (Negative); Blood,Urine Negative (Negative); Color,Urine Light Yellow; Glucose,Urine (UA) Negative (Negative); Ketones,Urine Negative (Negative); Leukocyte Esterase,Urine Moderate (Negative); Nitrite,Urine Negative (Negative); PH, Urine 5.5 (5.0-8.0); Protein,Urine Negative (Negative); RBC,Urine 2 /hpf (0-5); Specific Gravity,Urine 1.012 (1.001-1.035); Squamous Epithelial Cell,Urine <1 /hpf (0-4); Urobilinogen,Urine <2.0 mg/dL (<2.0); WBC,Urine 7 /hpf (0-5)
[2019-09-19] MEDS ORDERED: MAG HYDROX/AL HYDROX/SIMETH 30 ML CUP PO PRN (00:28)
[2019-09-19] MEDS ORDERED: NALOXONE 0.4 MG/ML 1 ML VIAL IV PRN (00:28)
[2019-09-19 00:35] LABS: African American GFR (CKD) >90 (>60 ml/min/1.73 sqM); Anion Gap 5 mmol/L; Blood Urea Nitrogen 23 mg/dL (7-17); Calcium 7.8 mg/dL (8.4-10.2); Carbon Dioxide 26 mmol/L (22-30); Chloride 111 mmol/L (98-107); Glucose 109 mg/dL (74-99); Potassium 4.3 mmol/L (3.5-5.1); Sodium 142 mmol/L (137-145)
[2019-09-19] MEDS: SODIUM CHLORIDE 0.9% 1,000 ML IV SCH ×2 (00:44→22:12)
[2019-09-19 02:18] VITALS: BMI 17.3
[2019-09-19] MEDS: Acetaminophen-Codeine 300-30mg TAB PO PRN ×2 (04:17→08:41)
[2019-09-19] MEDS ORDERED: FAMOTIDINE 20 MG TAB PO SCH (09:00)
--- NOTE | 2019-09-19 11:14 | P.HPOR ---
History of Present Illness H&P Date: 09/19/19 The patient is a very pleasant 84-year-old female with a medical history significant for mild dementia and frequent falls who was admitted following a ground-level fall with left-sided pubic rami fractures. The patient was admitted under my care. This morning the time of my evaluation the patient is complaining of left-sided hip pain and right knee pain. She reports having problems with both of her knees, which have been operated on several times by Dr. Crews. She has no other complaints this morning. 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, very forgetful History of Any Multi-Drug Resistant Organisms: None Reported Past Surgical History: Adenoidectomy, Back Surgery, Joint Replacement, Orthopedic Surgery, Tonsillectomy Additional Past Surgical History / Comment(s): thyroid Past Anesthesia/Blood Transfusion Reactions: No Reported Reaction Smoking Status: Never smoker - Past Family History Mother Family Medical History: Cancer Medications and Allergies Home Medications Medication Instructions Recorded Confirmed Type Famotidine [Pepcid] 20 mg PO BID 06/18/15 09/18/19 History Calcium Carbonate [Calcium] 1,800 mg PO BID 04/08/19 09/18/19 History Folic Acid 1 mg PO DAILY 04/08/19 09/18/19 History Omeprazole 20 mg PO DAILY 05/03/19 09/18/19 History Potassium Chloride ER [K-Dur 20] 20 meq PO DAILY 05/03/19 09/18/19 History Vit C/E/Zn/Coppr/Lutein/Zeaxan 2 cap PO DAILY 05/03/19 09/18/19 History [Preservision Areds 2 Softgel] Cyanocobalamin [Vitamin B-12] 500 mcg PO DAILY 07/18/19 09/18/19 History Levothyroxine Sodium [Synthroid] 150 mcg PO DAILY 09/18/19 09/18/19 History Rivaroxaban [Xarelto] 15 mg PO DAILY 09/18/19 09/18/19 History busPIRone HCl [Buspar] 10 mg PO HS PRN 09/18/19 09/18/19 History Allergies Allergy/AdvReac Type Severity Reaction Status Date / Time morphine Allergy Unknown Verified 09/18/19 21:39 nickel Allergy Unknown Verified 09/18/19 21:39 Physical Examination The patient is in mild distress secondary to pain. She has periorbital ecchymosis on the right. Her head is otherwise normocephalic and atraumatic. The upper extremities are nontender. On inspection of the right leg there is a healed incision over the anterior aspect of the knee consistent with arthroplasty. There is no erythema or warmth. There is mild tenderness diffusely throughout the knee and mild pain with passive range of motion. On examination of the left leg there is a healed incision with no erythema or warmth from prior total knee replacement. There is mild discomfort with passive range of motion of the hip. Results X-rays of the pelvis show left-sided superior and inferior pubic rami fractures. - Labs Labs: Abnormal Lab Results - Last 24 Hours (Table) 09/19/19 09/19/19 09/19/19 Range/Units 00:13 00:13 00:13 RBC 3.22 L (3.80-5.40) m/uL Hgb 10.2 L (11.4-16.0) gm/dL Hct 31.4 L (34.0-46.0) % Chloride 111 H (98-107) mmol/L BUN 23 H (7-17) mg/dL Creatinine 0.47 L (0.52-1.04) mg/dL Glucose 109 H (74-99) mg/dL Calcium 7.8 L (8.4-10.2) mg/dL Ur Leukocyte Esterase Moderate H (Negative) Urine WBC 7 H (0-5) /hpf Urine Bacteria Rare H (None) /hpf H & H 09/19/19 Range/Units 00:13 Hgb 10.2 L (11.4-16.0) gm/dL Hct 31.4 L (34.0-46.0) % Result Diagrams: 09/19/19 00:13 09/19/19 00:13 Assessment and Plan (1) Fall Current Visit: Yes Status: Acute Code(s): W19.XXXA - UNSPECIFIED FALL, INITIAL ENCOUNTER SNOMED Code(s): 5493467 (2) Pubic ramus fracture Current Visit: Yes Status: Acute Code(s): S32.599A - OTH FRACTURE OF UNSP PUBIS, INIT ENCNTR FOR CLOSED FRACTURE SNOMED Code(s): 83239651 Plan: In regards to the patient's pubic rami fractures they can be managed nonoperatively with protected weightbearing using a walker. She can weight-bear as tolerated on both legs. Since the patient is going to be managed non- surgically and has multiple medical problems and will require discharge planning I would like to transfer her care to internal medicine. In regards to her bilateral painful total knee replacements I see no need for surgical intervention at this time. We'll obtain x-rays on the right since it seems more painful. If there are any questions regarding treatment of her knees or she needs follow-up following discharge for her knees, I would contact Merlin Irvin PA-C or Dr. Austen Crews. I would like to see the patient in the office in 2 weeks for follow-up of the pubic rami fractures. We will continue to follow [place] while the patient is in-house. Time with Patient: Greater than 30
[2019-09-19] MEDS ORDERED: ACETAMINOPHEN TAB 325 MG TAB PO PRN (15:02)
--- NOTE | 2019-09-19 15:45 | P.HPIM ---
History of Present Illness Patient is a 83-year-old female was admitted the after a fall. Patient has a laceration on the head of H has rich now and bruising on both knees were x- rays of the both knees will be obtained and patient has a pubic jaison a fracture. Patient is an have any significant swelling in the knee area and doesn't appear to have any fractures in those areas. Patient is alert oriented 2 were do not have either her baseline family is not available to discuss regarding the baseline although patient appears to have dementia which is moderate to severe. Unsure whether patient has been eating them at this time although patient doesn't have any infection at this time doesn't appear to have pneumonia and urinary tract infection. Patient is not on any medications that significantly cause altered mental status. Patient doesn't provide much of the history. 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, very forgetful History of Any Multi-Drug Resistant Organisms: None Reported Past Surgical History: Adenoidectomy, Back Surgery, Joint Replacement, Orthope dic Surgery, Tonsillectomy Additional Past Surgical History / Comment(s): thyroid Past Anesthesia/Blood Transfusion Reactions: No Reported Reaction Smoking Status: Never smoker - Past Family History Mother Family Medical History: Cancer Medications and Allergies Home Medications Medication Instructions Recorded Confirmed Type Famotidine [Pepcid] 20 mg PO BID 06/18/15 09/18/19 History Calcium Carbonate [Calcium] 1,800 mg PO BID 04/08/19 09/18/19 History Folic Acid 1 mg PO DAILY 04/08/19 09/18/19 History Omeprazole 20 mg PO DAILY 05/03/19 09/18/19 History Potassium Chloride ER [K-Dur 20] 20 meq PO DAILY 05/03/19 09/18/19 History Vit C/E/Zn/Coppr/Lutein/Zeaxan 2 cap PO DAILY 05/03/19 09/18/19 History [Preservision Areds 2 Softgel] Cyanocobalamin [Vitamin B-12] 500 mcg PO DAILY 07/18/19 09/18/19 History Levothyroxine Sodium [Synthroid] 150 mcg PO DAILY 09/18/19 09/18/19 History Rivaroxaban [Xarelto] 15 mg PO DAILY 09/18/19 09/18/19 History busPIRone HCl [Buspar] 10 mg PO HS PRN 09/18/19 09/18/19 History Allergies Allergy/AdvReac Type Severity Reaction Status Date / Time morphine Allergy Unknown Verified 09/18/19 21:39 nickel Allergy Unknown Verified 09/18/19 21:39 Physical Exam Vitals: Vital Signs Temp Pulse Pulse Resp BP BP BP 09/19/19 12:42 98 F 90 16 127/59 09/19/19 05:21 97.7 F 93 16 130/60 09/19/19 01:38 97.7 F 84 16 138/63 09/18/19 23:00 144/71 09/18/19 22:40 144/71 09/18/19 22:10 118/56 09/18/19 21:40 127/69 09/18/19 21:03 98.5 F 87 16 133/69 Pulse Ox 09/19/19 12:42 97 09/19/19 05:21 99 09/19/19 01:38 99 09/18/19 23:00 97 09/18/19 22:40 100 09/18/19 22:10 98 09/18/19 21:40 09/18/19 21:03 99 Intake and Output 09/19/19 09/19/19 09/19/19 06:59 14:59 22:59 Intake Total 250 Balance 250 Intake: Oral 250 Other: Voiding Method Bedpan Bedpan Bedpan # Voids 3 4 Weight 47.174 kg PHYSICAL EXAMINATION: GENERAL: The patient is alert and oriented x2, not in any acute distress. Well developed, well nourished. HEENT: Pupils are round and equally reacting to light. EOMI. No scleral icterus. No conjunctival pallor. Normocephalic, patient has a laceration that has rich. No pharyngeal erythema. No thyromegaly. CARDIOVASCULAR: S1 and S2 present. No murmurs, rubs, or gallops. PULMONARY: Chest is clear to auscultation, no wheezing or crackles. ABDOMEN: Soft, nontender, nondistended, normoactive bowel sounds. No palpable organomegaly. MUSCULOSKELETAL: No joint swelling or deformity. EXTREMITIES: No cyanosis, clubbing, or pedal edema. NEUROLOGICAL: Gross neurological examination did not reveal any focal deficits. She does have significant muscle atrophy in both legs SKIN: Bruises in both legs Results CBC & Chem 7: 09/19/19 00:13 09/19/19 00:13 Labs: Abnormal Lab Results - Last 24 Hours (Table) 09/19/19 09/19/19 09/19/19 Range/Units 00:13 00:13 00:13 RBC 3.22 L (3.80-5.40) m/uL Hgb 10.2 L (11.4-16.0) gm/dL Hct 31.4 L (34.0-46.0) % Chloride 111 H (98-107) mmol/L BUN 23 H (7-17) mg/dL Creatinine 0.47 L (0.52-1.04) mg/dL Glucose 109 H (74-99) mg/dL Calcium 7.8 L (8.4-10.2) mg/dL Ur Leukocyte Esterase Moderate H (Negative) Urine WBC 7 H (0-5) /hpf Urine Bacteria Rare H (None) /hpf Thrombosis Risk Factor Assmnt - Choose All That Apply Any of the Below Risk Factors Present?: Yes Each Factor Represents 1 point: Medical pt on bed rest Other Risk Factors: Yes Each Risk Factor Represents 2 Points: Patient confined to bed Each Risk Factor Represents 3 Points: Age 75 years or older, History of DVT/PE Other congenital or acquired thrombophilia - If yes, enter type in comment: No Thrombosis Risk Factor Assessment Total Risk Factor Score: 9 Thrombosis Risk Factor Assessment Level: High Risk Assessment and Plan Plan: -Fall: It appears to be mechanical fall with the hip fracture conservative measures physical therapy and occupational therapy will need placement to subacute rehabilitation. -Altered mental status I do not believe patient has encephalopathy or delirium it appears that patient has dementia and generalized weakness and chronic weakness from dementia and age. Etiology of dementia is not clear may be senile dementia or vascular -History of PE and patient is on anticoagulations which will be continued -Hypothyroidism -Possible dementia senile or vascular supportive care -Generalized deconditioning area
--- NOTE | 2019-09-19 16:18 | XR ---
EXAMINATION TYPE: XR knee complete LT DATE OF EXAM: 09/19/2019 COMPARISON: NONE HISTORY: Knee pain TECHNIQUE: 4 views FINDINGS: There is left knee prosthesis. Components are in anatomic position. There is no evidence of a fracture. IMPRESSION: No fracture seen.
[2019-09-19] MEDS: KETOROLAC 30 MG/ML 1 ML VIAL IVP PRN (16:26)
[2019-09-19] MEDS: busPIRone HCl 10 MG TAB PO PRN (19:59)
[2019-09-19] MEDS: FAMOTIDINE 20 MG TAB PO SCH (20:00)
[2019-09-19] MEDS: CALCIUM CARBONATE 500 MG CHEWABLE PO SCH (20:00)
[2019-09-20] MEDS: KETOROLAC 30 MG/ML 1 ML VIAL IVP PRN ×2 (03:13→08:51)
[2019-09-20] MEDS: CYANOCOBALAMIN 500 MCG TAB PO SCH ×2 (07:16→07:28)
[2019-09-20] MEDS: FAMOTIDINE 20 MG TAB PO SCH ×3 (07:16→19:56)
[2019-09-20] MEDS: LEVOTHYROXINE 75 MCG TAB PO SCH ×2 (07:16→07:28)
[2019-09-20] MEDS: FOLIC ACID 1 MG TAB PO SCH ×2 (07:16→07:28)
[2019-09-20] MEDS: CALCIUM CARBONATE 500 MG CHEWABLE PO SCH ×3 (07:17→19:56)
[2019-09-20] MEDS ORDERED: RIVAROXABAN 15 MG TAB PO SCH (09:00)
--- NOTE | 2019-09-20 09:55 | P.PN ---
Subjective Progress Note Date: 09/20/19 The patient is a very pleasant 84-year-old female with a medical history significant for mild dementia and frequent falls who was admitted following a ground-level fall with left-sided pubic rami fractures. The patient was admitted under my care. This morning the time of my evaluation the patient is complaining of left-sided hip pain and right knee pain. She reports having problems with both of her knees, which have been operated on several times by Dr. Crews. She has no other complaints this morning. 09/20/19: Patient is examined bedside this morning. Sitter is bedside. Sitter states the patient recently used the bed dunne, although she has not been up with therapy today. Patient states she is not currently in pain. She denies any complaints at the time of my exam. Vital signs stable. Objective - Vital Signs Vital signs: Vital Signs Temp 97.4 F L 09/19/19 21:47 Pulse 108 H 09/19/19 22:51 Resp 19 09/19/19 22:51 BP 135/82 09/19/19 22:51 Pulse Ox 94 L 09/19/19 21:47 Intake & Output 09/19/19 09/20/19 09/20/19 18:59 06:59 18:59 Intake Total 1190 Balance 1190 Weight 47.174 kg Intake: Oral 1190 Other: Voiding Method Bedpan Incontinent Bedpan Diaper Incontinent # Voids 4 1 - Exam On examination, the patient is sitting up in bed in so apparent distress. She is alert and orientated x1. There is periorbital ecchymosis on the right. On inspection of the right leg there is a healed incision over the anterior aspect of the knee consistent with arthroplasty. No erythema or warmth. Mild tenderness to palpation. On inspection of the left leg there is a healed incision with no erythema or warmth from prior total knee replacement. There is mild discomfort with passive range of motion of the hip. Patient has good active ROM of the left ankles and toes. Bilateral calves are soft and nontender to palpation. Bilateral lower extremities are warm and well perfused. - Labs CBC & Chem 7: 09/19/19 00:13 09/19/19 00:13 Assessment and Plan Assessment: Left-sided superior and inferior pubic rami fractures History of bilateral total knee arthoplasty Plan: - Patient may bear weight to tolerance on the bilateral lower extremities. Up with a walker, up with therapy. - Physical therapy for gait and balance training. - Recommended the patient contact Dr. Crews if she continues to experience any issues with her bilateral knees. - Patient will follow-up in the office in two weeks with Dr. Roque in regards to her pubic rami fractures. We will continue to follow patient will she remains inpatient. Patient discussed with Dr. Roque.
--- NOTE | 2019-09-20 16:40 | HP ---
HISTORY AND PHYSICAL CHIEF COMPLAINT: Fall with pelvic fracture. HISTORY OF PRESENT ILLNESS: This is another admission for this 84-year-old deteriorating white female who has longstanding history of diffuse interstitial fibrosis and lately has gradually been deteriorating, probably due to Parkinson's disease more than anything. She is also becoming demented. She has been trying to live at home with her demented with the help of family members, but it has not been going well, largely due to her gradual weakness. She fell and came into the emergency room, where she was found to have fractures of the superior and inferior pubic rami. At the same time, her at home. Review of systems cannot be obtained due to her confusion. Past medical history, family history, and personal and social histories reveal that she is ALLERGIC to MORPHINE and NICKEL. Her medications of late have been: 1. Buspar 10 mg once a day p.r.n. 2. Pepcid. 3. Ultram p.r.n. 4. Potassium. 5. Xarelto. 6. Paxil. 7. Levothyroxine. 8. Omeprazole. 9. Montelukast. 10.Budesonide inhaler. Review of systems is otherwise unremarkable. She does not smoke or drink. PHYSICAL EXAMINATION: Blood pressure is 90/50 with a pulse of 88, respirations 12, and she is afebrile. In general she appeared to be very asthenic and malnourished. She was slightly pale. Head, ears, eyes, nose, mouth and throat were normal except for slightly dry mucous membranes. Neck is supple. Neck veins are not distended. Chest was fairly clear with no rales or rhonchi. Cardiac exam demonstrated sinus tachycardia. The abdomen was soft and nontender. She is tender over the symphysis pubis. Extremities were normal. Neurologically she was confused. She is admitted to the hospital with the diagnoses: 1. Fracture of pelvis. 2. General debility. 3. Dementia. 4. Hypothyroidism. PLAN: 1. Bed rest. 2. IV fluids. 3. Analgesics. 4. Discharge planning for rehab and probable long-term care as well. MMODL / IJN: [id number] /
--- NOTE | 2019-09-20 16:46 | PN ---
PROGRESS NOTE DATE OF SERVICE: 09/20/2019 CHIEF COMPLAINT: Fracture of the pelvis and dementia. HISTORY OF PRESENT ILLNESS: This lady is quite agitated. She is confused. She has an advanced directive indicating she wants to be DNR and this will be entered. PHYSICAL EXAMINATION: Breath sounds are heard on both sides. Cardiac exam is unremarkable. The abdomen is flat and soft. Extremities are normal. IMPRESSION: 1. Frequent falling. 2. Fracture of the pelvis. 3. Dementia. PLAN: 1. DNR. 2. Discharge planning for long-term care. MMODL / IJN: [id number] /
[2019-09-20] MEDS: busPIRone HCl 10 MG TAB PO PRN (19:55)
[2019-09-20] MEDS: traMADol 50 MG TAB PO PRN (19:55)
[2019-09-20] MEDS: SODIUM CHLORIDE 0.9% 1,000 ML IV SCH (23:43)
[2019-09-21] MEDS: traMADol 50 MG TAB PO PRN ×2 (05:05→20:15)
[2019-09-21] MEDS: LEVOTHYROXINE 75 MCG TAB PO SCH (05:54)
[2019-09-21] MEDS: CALCIUM CARBONATE 500 MG CHEWABLE PO SCH ×2 (08:43→20:15)
[2019-09-21] MEDS: FAMOTIDINE 20 MG TAB PO SCH ×2 (08:43→20:16)
[2019-09-21] MEDS: FOLIC ACID 1 MG TAB PO SCH (08:43)
[2019-09-21] MEDS: CYANOCOBALAMIN 500 MCG TAB PO SCH (08:43)
--- NOTE | 2019-09-21 11:55 | P.PN ---
Subjective Progress Note Date: 09/21/19 The patient is a very pleasant 84-year-old female with a medical history significant for mild dementia and frequent falls who was admitted following a ground-level fall with left-sided pubic rami fractures. The patient was admitted under my care. This morning the time of my evaluation the patient is complaining of left-sided hip pain and right knee pain. She reports having problems with both of her knees, which have been operated on several times by Dr. Crews. She has no other complaints this morning. 09/21/19: Patient is examined bedside this morning. She is eating breakfast. Patient is mildly confused, she originally states she has not been out of bed today, although she then states she has been up to the bathroom with assistance and with a walker. She denies any significant pain in the pelvis today. She has no new complaints today. Vital signs stable. Objective - Vital Signs Vital signs: Vital Signs Temp 97.7 F 09/21/19 05:00 Pulse 77 09/21/19 05:00 Resp 16 09/21/19 05:00 BP 124/70 09/21/19 05:00 Pulse Ox 97 09/21/19 05:00 Intake & Output 09/20/19 09/21/19 09/21/19 18:59 06:59 18:59 Intake Total 360 1190 Balance 360 1190 Intake: Intake, IV Titration 0 Amount Sodium Chloride 0.9% 1, 0 000 ml @ 20 mls/hr IV . Q24H [facility] Rx#:[id number] Oral 360 1190 Other: Voiding Method Bedpan Toilet Toilet Diaper Incontinent # Voids 2 1 # Bowel Movements 1 1 - Exam On examination, the patient is sitting up in bed in so apparent distress. She is alert and orientated x1. There is periorbital ecchymosis on the right. On inspection of the right leg there is a healed incision over the anterior aspect of the knee consistent with arthroplasty. No erythema or warmth. Mild tenderness to palpation. On inspection of the left leg there is a healed incision with no erythema or warmth from prior total knee replacement. There is mild discomfort with passive range of motion of the hip. Patient has good active ROM of the left ankles and toes. Bilateral calves are soft and nontender to palpation. Bilateral lower extremities are warm and well perfused. - Labs CBC & Chem 7: 09/19/19 00:13 09/19/19 00:13 Assessment and Plan Assessment: Left-sided superior and inferior pubic rami fractures History of bilateral total knee arthroplasty Plan: - Patient may bear weight to tolerance on the bilateral lower extremities. Up with a walker, up with therapy. - Physical therapy for gait and balance training. - Recommended the patient contact Dr. Crews if she continues to experience any issues with her bilateral knees. - Patient will follow-up in the office in two weeks with Dr. Roque in regards to her pubic rami fractures. We will continue to follow patient will she remains inpatient. Patient discussed with Dr. Roque.
[2019-09-21] MEDS ORDERED: busPIRone HCl 10 MG TAB PO SCH (21:00)
[2019-09-21] MEDS ORDERED: HALOPERIDOL LACTATE 5 MG/ML 1 ML VIAL IM STA (21:08)
[2019-09-21 21:57] VITALS: RESP 18
[2019-09-22] MEDS: SODIUM CHLORIDE 0.9% 1,000 ML IV SCH (00:21)
[2019-09-22] MEDS: HALOPERIDOL LACTATE 5 MG/ML 1 ML VIAL IM STA ×2 (02:06→04:55)
[2019-09-22 06:27] VITALS: BP 156/70; PULSE 114; TEMP 98.4
[2019-09-22] MEDS: LEVOTHYROXINE 75 MCG TAB PO SCH (09:04)
[2019-09-22] MEDS: FOLIC ACID 1 MG TAB PO SCH (09:05)
[2019-09-22] MEDS: CALCIUM CARBONATE 500 MG CHEWABLE PO SCH (09:05)
[2019-09-22] MEDS: CYANOCOBALAMIN 500 MCG TAB PO SCH (09:05)
[2019-09-22] MEDS: FAMOTIDINE 20 MG TAB PO SCH (09:05)
--- NOTE | 2019-09-22 11:12 | DS ---
DISCHARGE SUMMARY CHIEF COMPLAINT: Fall with fracture of the pelvis. HISTORY OF PRESENT ILLNESS AND PHYSICAL EXAM: Details of this lady's history and physical can be found in the initial workup. COURSE IN HOSPITAL: After admission, she was placed on bedrest, started on intravenous fluids and she was seen by Orthopedics. No surgical intervention was indicated. While she was in a hospital,. she remained very confused and delirious. At the same time she came in, her at home. She has been gradually deteriorating and becoming more and more debilitated and cannot return home to live alone. Arrangements were made for her to go to a intermediate and she will be transferred there on 09/22. FINAL DIAGNOSES: 1. Fracture of the pelvis. 2. Frequent falls. 3. General debility and failure to thrive. 4. Dementia. 5. Delirium. 6. Hypothyroidism. OPERATIONS: None. CONSULTATION: Orthopedics. She is improved. MMODL / IJN: [id number] /
--- NOTE | 2019-09-22 12:54 | P.PN ---
Subjective Progress Note Date: 09/22/19 The patient is a very pleasant 84-year-old female with a medical history significant for mild dementia and frequent falls who was admitted following a ground-level fall with left-sided pubic rami fractures. The patient was admitted under my care. This morning the time of my evaluation the patient is complaining of left-sided hip pain and right knee pain. She reports having problems with both of her knees, which have been operated on several times by Dr. Crews. She has no other complaints this morning. 09/22/19: Patient is examined bedside this morning. Per nursing, she was up with therapy and a walker yesterday without significant issues or pain. She states she is not currently experiencing pain. She feels well. She has no new complaints today. Vital signs stable. Objective - Vital Signs Vital signs: Vital Signs Temp 98.4 F 09/22/19 05:00 Pulse 114 H 09/22/19 05:00 Resp 18 09/22/19 05:00 BP 156/70 09/22/19 05:00 Pulse Ox 96 09/22/19 05:00 Intake & Output 09/21/19 09/22/19 09/22/19 18:59 06:59 18:59 Intake Total 200 Balance 200 Intake: Oral 200 Other: Voiding Method Toilet Toilet Toilet Diaper Diaper Incontinent Incontinent # Voids 2 4 - Exam On examination, the patient is sitting up in bed in so apparent distress. She is alert and orientated x1. There is periorbital ecchymosis on the right. On inspection of the right leg there is a healed incision over the anterior aspect of the knee consistent with arthroplasty. No erythema or warmth. On inspection of the left leg there is a healed incision with no erythema or warmth from prior total knee replacement. There is mild discomfort with passive range of motion of the hip. Patient has good active ROM of the left ankles and toes. Bilateral calves are soft and nontender to palpation. Bilateral lower extremities are warm and well perfused. - Labs CBC & Chem 7: 09/19/19 00:13 09/19/19 00:13 Assessment and Plan Assessment: Left-sided superior and inferior pubic rami fractures History of bilateral total knee arthroplasty Plan: - Patient may bear weight to tolerance on the bilateral lower extremities. Up with a walker, up with therapy. - Physical therapy for gait and balance training. - Recommended the patient contact Dr. Crews if she continues to experience any issues with her bilateral knees. - Patient will follow-up in the office in two weeks with Dr. Roque in regards to her pubic rami fractures. We will continue to follow patient will she remains inpatient. Patient discussed with Dr. Roque.
--- NOTE | 2019-09-22 20:22 | PN ---
PROGRESS NOTE CHIEF COMPLAINT: Fracture of the pelvis, dementia and delirium. HISTORY OF PRESENT ILLNESS: This lady continues to be very agitated and is requiring sedation occasionally. She is otherwise stable and we are waiting for senior care placement. PHYSICAL EXAMINATION: She is slightly pale. Hydration is adequate. Chest demonstrates clear breath sounds. The cardiac exam is unremarkable. Abdomen is soft, nontender. IMPRESSION: 1. Fracture of the pelvis. 2. Dementia. 3. Delirium. PLAN: [facility] placement when bed is available. MMODL / IJN: [id number] /
== END 2019-09-22 17:30 | DRG 536 ==
LOC: EC 20:58 → 3NMEDONC 09-19 00:28
PROVIDERS: ADMIT Family Medicine; ATTEND Family Medicine
PROC: 0HQ0XZZ Repair Scalp Skin, External Approach (ICD-10-PCS; principal; 2019-09-18)
DX: S32.592A Other specified fracture of left pubis, initial encounter for closed fracture (principal); F05 Delirium due to known physiological condition; W18.30XA Fall on same level, unspecified, initial encounter; Z91.81 History of falling; Y92.009 Unspecified place in unspecified non-institutional (private) residence as the place of occurrence of the external cause; E03.9 Hypothyroidism, unspecified; F01.50 Vascular dementia, unspecified severity, without behavioral disturbance, psychotic disturbance, mood disturbance, and anxiety; G20 Parkinson's disease; J84.10 Pulmonary fibrosis, unspecified; R29.6 Repeated falls; R62.7 Adult failure to thrive; S01.01XA Laceration without foreign body of scalp, initial encounter; S80.01XA Contusion of right knee, initial encounter; S80.02XA Contusion of left knee, initial encounter; Z66 Do not resuscitate; Z79.01 Long term (current) use of anticoagulants; Z79.890 Hormone replacement therapy; Z79.899 Other long term (current) drug therapy; Z86.711 Personal history of pulmonary embolism; Z96.653 Presence of artificial knee joint, bilateral; Z99.81 Dependence on supplemental oxygen; Z63.4 Disappearance and death of family member; Z88.5 Allergy status to narcotic agent; S05.10XA Contusion of eyeball and orbital tissues, unspecified eye, initial encounter; R53.81 Other malaise; R45.1 Restlessness and agitation
CPT/HCPCS: 12001; 36415; 70450; 71045; 72125; 72170; 80048; 81001; 85025; 99285

== ENCOUNTER 2021-06-04 16:28 | Inpatient (IN) | payer MEDICARE ==
[2021-06-04] MEDS ORDERED: SODIUM CHLORIDE 0.9% 1,000 ML IV STA (17:35)
--- NOTE | 2021-06-04 18:18 | ED ---
General Adult HPI - General Chief complaint: Weakness Stated complaint: Dementia,Weakness Time Seen by Provider: 06/04/21 16:52 Source: patient, family Mode of arrival: ambulatory Limitations: altered mental status - History of Present Illness Initial comments: Patient is an 86-year-old female with past medical history remarkable for lewey body dementia, prior pulmonary fibrosis, blood clots no longer on anticoagulation, chronic debility who presents emergency department with family members for placement. Patient's family has been taking care of her but they state that his to much at this point. Patient did fall last week and hit her head. She did not seek medical care at that time. She has been having increased amount of fatigue and sleeping more often over the last few weeks as well. Patient's family also noticed the patient had what appears to be a contact rash over her back and abdomen that is acute in onset. There are no new medications and known new known exposures to soaps or detergents. Patient's family is overall concerned with her well-being and state that she requires more care and they were considering hospice at this point. Baseline, patient is normally not oriented to person, self, place. She is at her baseline at this time. She has difficulty walking. She sleeps most the day. Patient's family otherwise has no acute complaints for the patient, but to state that she has not been eating as much as she previously was. She does seem somewhat more weak over the last few weeks as well. Patient denies any chest pain, shortness of breath, abdominal pain, nausea, vomiting, however I do believe that review of systems is unreliable secondary to her dementia. - Related Data Home Medications Medication Instructions Recorded Confirmed Levothyroxine Sodium [Synthroid] 150 mcg PO DAILY 09/18/19 09/18/19 Allergies Allergy/AdvReac Type Severity Reaction Status Date / Time morphine Allergy Unknown Verified 06/04/21 16:45 nickel Allergy Unknown Verified 06/04/21 16:45 Review of Systems ROS Statement: Those systems with pertinent positive or pertinent negative responses have been documented in the HPI. Review of systems is unreliable secondary to patient's current clinical status and history of dementia. ROS Other: All systems not noted in ROS Statement are negative. 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, very forgetful History of Any Multi-Drug Resistant Organisms: None Reported Past Surgical History: Adenoidectomy, Back Surgery, Joint Replacement, Orthopedic Surgery, Tonsillectomy Additional Past Surgical History / Comment(s): thyroid Past Anesthesia/Blood Transfusion Reactions: No Reported Reaction Past Psychological History: No Psychological Hx Reported Smoking Status: Never smoker Past Alcohol Use History: None Reported Past Drug Use History: None Reported - Past Family History Mother Family Medical History: Cancer General Exam - General Exam Comments Initial Comments: General: Appears in no acute distress. HEAD: Patient is a small healing scab located over the left forehead from prior fall. No obvious step-offs or deformities are appreciated. EYES: PERRLA, EOMI, conjunctiva normal, no discharge. Pupils are 3 mm bilaterally. ENT: Hearing grossly intact, normal oropharynx. RESPIRATORY: Clear breath sounds bilaterally. No wheezes, rales, or rhonchi. C/V: Regular rate and rhythm. S1 and S2 auscultated, no edema, peripheral pulses 2+ and intact throughout ABD: Abd is soft, nontender, nondistended EXT: Normal range of motion, no obvious deformity SKIN: Patient has erythema located over the upper back as well as across the lower abdomen along the areas were her closer more tight fitting. There is no obvious sores or fluctuance under the rash. She is afebrile. No other obvious other skin findings. NEURO: Alert but oriented 0 which is her baseline. She can move all 4 extremities. She has difficulty walking. The remainder of the neurological exam is difficult secondary to dementia. Patient's family does state that she appears to be her baseline. Limitations: altered mental status Course Vital Signs 06/04/21 06/04/21 06/04/21 16:40 19:06 20:05 Temperature 98.2 F 100.4 F H Pulse Rate 84 92 98 Respiratory 20 16 16 Rate Blood Pressure 137/70 138/74 138/74 O2 Sat by Pulse 95 96 95 Oximetry Medical Decision Making - Medical Decision Making Based on the patient's presentation and physical exam, I do believe that she requires admission for placement. However she recently fell and she is a poor historian overall we will obtain relatively broad workup. This includes infectious laboratory studies including blood cultures, CBC, electrolytes. We also obtain a cardiac workup: Troponin, EKG, chest x-ray. I will obtain a CT head to rule out intracranial process with her recent fall as well as a urinalysis to rule out UTI. She will be given a 1 L fluid bolus while she was here in the department. She is currently afebrile. Patient and family members are in agreement with this plan. She'll be connected to continuous cardiac monitoring while she was here in the department. Patient's EKG revealed no signs of acute ischemia. The machine read it as atrial flutter but I disagree, as I likely believe this is baseline artifact and the patient has normal sinus rhythm. Chest x-ray reveals infiltrates in the right middle lobe which are slightly worse compared to prior chest x-ray. Troponin is negative. Laboratory studies are otherwise remarkable for a mild leukocytosis of 11.4, a slightly elevated AST of 276, as well as a urinalysis that is remarkable for a UTI with positive nitrites, large amount of esterase, as well as WBCs and many bacteria. The patient's CT head revealed no acute intracranial process and chronic changes. Lactic acid is normal. Due to the patient's UTI, and possible pneumonitis versus pneumonia, she will be started on Rocephin. The patient's erythematous skin is likely a contact dermatitis and do not believe that he requires any acute intervention at this time. We'll continue to monitor while she is here in the department. I do believe that she requires admission to the hospital for placement and possible hospice after discussion with family. They're in agreement with this plan. I spoke with the patient's PCP, Dr. Harvey, who accepted the patient under his service. He was in agreement with this plan. Patient was therefore admitted to the hospital in serious condition. - Lab Data Result diagrams: 06/04/21 18:58 06/04/21 18:58 Lab Results 06/04/21 06/04/21 06/04/21 Range/Units 18:58 18:58 18:58 WBC 11.4 H (3.8-10.6) k/uL RBC 4.67 (3.80-5.40) m/uL Hgb 13.5 (11.4-16.0) gm/dL Hct 41.6 (34.0-46.0) % MCV 89.1 (80.0-100.0) fL MCH 28.9 (25.0-35.0) pg MCHC 32.4 (31.0-37.0) g/dL RDW 13.5 (11.5-15.5) % Plt Count 204 (150-450) k/uL MPV 8.1 Neutrophils % 90 % Lymphocytes % 5 % Monocytes % 3 % Eosinophils % 1 % Basophils % 0 % Neutrophils # 10.3 H (1.3-7.7) k/uL Lymphocytes # 0.6 L (1.0-4.8) k/uL Monocytes # 0.4 (0-1.0) k/uL Eosinophils # 0.1 (0-0.7) k/uL Basophils # 0.0 (0-0.2) k/uL Sodium 139 (137-145) mmol/L Potassium 4.3 (3.5-5.1) mmol/L Chloride 103 (98-107) mmol/L Carbon Dioxide 24 (22-30) mmol/L Anion Gap 12 mmol/L BUN 16 (7-17) mg/dL Creatinine 0.57 (0.52-1.04) mg/dL Est GFR (CKD-EPI)AfAm >90 (>60 ml/min/1.73 sqM) Est GFR (CKD-EPI)NonAf 85 (>60 ml/min/1.73 sqM) Glucose 104 H (74-99) mg/dL Plasma Lactic Acid Jimenez (0.7-2.0) mmol/L Calcium 8.2 L (8.4-10.2) mg/dL Magnesium 1.8 (1.6-2.3) mg/dL Total Bilirubin 0.8 (0.2-1.3) mg/dL AST 276 H (14-36) U/L ALT 11 (4-34) U/L Alkaline Phosphatase 80 (38-126) U/L Creatine Kinase 37 (30-135) U/L Troponin I (0.000-0.034) ng/mL Total Protein 6.8 (6.3-8.2) g/dL Albumin 3.6 (3.5-5.0) g/dL Urine Color Yellow Urine Appearance Cloudy H (Clear) Urine pH 5.0 (5.0-8.0) Ur Specific [place] 1.018 (1.001-1.035) Urine Protein Negative (Negative) Urine Glucose (UA) Negative (Negative) Urine Ketones 1+ H (Negative) Urine Blood Trace H (Negative) Urine Nitrite Positive H (Negative) Urine Bilirubin Negative (Negative) Urine Urobilinogen <2.0 (<2.0) mg/dL Ur Leukocyte Esterase Large H (Negative) Urine RBC <1 (0-5) /hpf Urine WBC 11 H (0-5) /hpf Ur Squamous Epith Cells 2 (0-4) /hpf Urine Bacteria Many H (None) /hpf Hyaline Casts 1 (0-2) /lpf Urine Mucus Rare H (None) /hpf 06/04/21 06/04/21 Range/Units 18:58 18:58 WBC (3.8-10.6) k/uL RBC (3.80-5.40) m/uL Hgb (11.4-16.0) gm/dL Hct (34.0-46.0) % MCV (80.0-100.0) fL MCH (25.0-35.0) pg MCHC (31.0-37.0) g/dL RDW (11.5-15.5) % Plt Count (150-450) k/uL MPV Neutrophils % % Lymphocytes % % Monocytes % % Eosinophils % % Basophils % % Neutrophils # (1.3-7.7) k/uL Lymphocytes # (1.0-4.8) k/uL Monocytes # (0-1.0) k/uL Eosinophils # (0-0.7) k/uL Basophils # (0-0.2) k/uL Sodium (137-145) mmol/L Potassium (3.5-5.1) mmol/L Chloride (98-107) mmol/L Carbon Dioxide (22-30) mmol/L Anion Gap mmol/L BUN (7-17) mg/dL Creatinine (0.52-1.04) mg/dL Est GFR (CKD-EPI)AfAm (>60 ml/min/1.73 sqM) Est GFR (CKD-EPI)NonAf (>60 ml/min/1.73 sqM) Glucose (74-99) mg/dL Plasma Lactic Acid Jimenez 1.9 (0.7-2.0) mmol/L Calcium (8.4-10.2) mg/dL Magnesium (1.6-2.3) mg/dL Total Bilirubin (0.2-1.3) mg/dL AST (14-36) U/L ALT (4-34) U/L Alkaline Phosphatase (38-126) U/L Creatine Kinase (30-135) U/L Troponin I <0.012 (0.000-0.034) ng/mL Total Protein (6.3-8.2) g/dL Albumin (3.5-5.0) g/dL Urine Color Urine Appearance (Clear) Urine pH (5.0-8.0) Ur Specific [place] (1.001-1.035) Urine Protein (Negative) Urine Glucose (UA) (Negative) Urine Ketones (Negative) Urine Blood (Negative) Urine Nitrite (Negative) Urine Bilirubin (Negative) Urine Urobilinogen (<2.0) mg/dL Ur Leukocyte Esterase (Negative) Urine RBC (0-5) /hpf Urine WBC (0-5) /hpf Ur Squamous Epith Cells (0-4) /hpf Urine Bacteria (None) /hpf Hyaline Casts (0-2) /lpf Urine Mucus (None) /hpf - EKG Data -: EKG Interpreted by Me EKG Comments: 12-lead Electrocardiogram Interpretation Note EKG was reviewed and interpreted by myself. 12-lead ECG performed at 1938 is interpreted by me as revealing normal sinus rhythm at a rate of 90 beats per minute. The machine reads it as atrial flutter with variable AV block but they're clear P waves seen in multiple leads. I likely suspect that they reading atrial flutter based on the one in lead 2 which have a good amount of baseline artifact. [place] is normal. QRS duration 64 ms, QTc is 447 ms.. There were no ST or T wave abnormalities to suggest myocardial ischemia or injury. R wave progression across the precordium was satisfactory. By my interpretation this EKG is non-diagnostic for acute ischemia. I also disagree with the machine as I do not believe that it reveals atrial flutter but rather normal sinus rhythm. I believe the atrial flutter is likely being read secondary to the baseline artifact. Disposition Clinical Impression: UTI (urinary tract infection), Dementia, Debility, Pneumonia, Pneumonitis, Leukocytosis, Lewy body dementia, Rash of unknown cause Disposition: ADMITTED IP TO THIS [facility] Condition: Serious
--- NOTE | 2021-06-04 18:30 | XR ---
EXAMINATION TYPE: XR chest 1V portable DATE OF EXAM: 06/04/2021 COMPARISON: 09/18/2019 HISTORY: Weakness TECHNIQUE: FINDINGS: There is some infiltrate at the medial right lung base. There is also some mild infiltrate in the lateral right upper lobe. There is right shoulder prosthesis. Left lung is fairly clear. There is no heart failure. Heart size is normal. There is arthritic changes in the left shoulder joint. Th ere is medial position of the prosthetic humeral head suggestive of partial dislocation. IMPRESSION: Right side pneumonic infiltrates are increased compared to old exam. No heart failure.
[2021-06-04 19:14] LABS: ALT 11 U/L (4-34); AST 276 U/L (14-36); African American GFR (CKD) >90 (>60 ml/min/1.73 sqM); Albumin 3.6 g/dL (3.5-5.0); Alkaline Phosphatase 80 U/L (38-126); Anion Gap 12 mmol/L; Blood Urea Nitrogen 16 mg/dL (7-17); Calcium 8.2 mg/dL (8.4-10.2); Carbon Dioxide 24 mmol/L (22-30); Chloride 103 mmol/L (98-107); Creatine Kinase 37 U/L (30-135); Glucose 104 mg/dL (74-99); Magnesium 1.8 mg/dL (1.6-2.3); Non-African American GFR(CKD) 85 (>60 ml/min/1.73 sqM); Sodium 139 mmol/L (137-145); Total Bilirubin 0.8 mg/dL (0.2-1.3); Total Protein 6.8 g/dL (6.3-8.2)
[2021-06-04 19:20] LABS: Appearance,Urine Cloudy (Clear); Bacteria,Urine Many /hpf; Bilirubin,Urine Negative (Negative); Blood,Urine Trace (Negative); Color,Urine Yellow; Glucose,Urine (UA) Negative (Negative); Hyaline Casts,Urine 1 /lpf (0-2); Ketones,Urine 1+ (Negative); Leukocyte Esterase,Urine Large (Negative); Mucus,Urine Rare /hpf; Nitrite,Urine Positive (Negative); Protein,Urine Negative (Negative); RBC,Urine <1 /hpf (0-5); Specific Gravity,Urine 1.018 (1.001-1.035); Squamous Epithelial Cell,Urine 2 /hpf (0-4); Urobilinogen,Urine <2.0 mg/dL (<2.0); WBC,Urine 11 /hpf (0-5)
[2021-06-04 19:27] LABS: Basophils % (A) 0 %; Eosinophils # (A) 0.1 k/uL (0-0.7); Eosinophils % (A) 1 %; HCT 41.6 % (34.0-46.0); HGB 13.5 gm/dL (11.4-16.0); Lymphocytes # (A) 0.6 k/uL (1.0-4.8); Lymphocytes % (A) 5 %; MCH 28.9 pg (25.0-35.0); MCHC 32.4 g/dL (31.0-37.0); MCV 89.1 fL (80.0-100.0); Mean Platelet Volume 8.1; Monocytes # (A) 0.4 k/uL (0-1.0); Monocytes % (A) 3 %; Neutrophils # (A) 10.3 k/uL (1.3-7.7); Neutrophils % (A) 90 %; Platelet Count 204 k/uL (150-450); RBC 4.67 m/uL (3.80-5.40); RDW 13.5 % (11.5-15.5); WBC 11.4 k/uL (3.8-10.6)
--- NOTE | 2021-06-04 19:27 | CT ---
EXAMINATION TYPE: CT brain wo con DATE OF EXAM: 06/04/2021 COMPARISON: 09/18/2019 HISTORY: ams CT DLP: 1217.4 mGycm Automated exposure control for dose reduction was used. There is cerebral cortical atrophy. There is no mass effect nor midline shift. There is no sign of in tracranial hemorrhage. Calvarium is intact. There is 2 cm area of hypodensity in the left frontal lob e white matter. The skull base is intact. IMPRESSION: Cerebral atrophy. 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 No significant change compared to old exam.
[2021-06-04 19:30] LABS: Potassium 4.3 mmol/L (3.5-5.1)
[2021-06-04] MEDS ORDERED: SODIUM CHLORIDE 0.9% 1,000 ML IV ONE (20:03)
[2021-06-04] MEDS ORDERED: ACETAMINOPHEN TAB 325 MG TAB PO STA (20:06)
[2021-06-04] MEDS ORDERED: KETOROLAC 15 MG/ML 1 ML VIAL IVP STA (20:06)
[2021-06-04 20:38] LABS: Partial Thromboplastin Time 24.2 sec (22.0-30.0); Prothrombin Time 10.9 sec (9.0-12.0)
[2021-06-05] MEDS: LEVOTHYROXINE 75 MCG TAB PO SCH (07:06)
--- NOTE | 2021-06-05 18:13 | PN ---
PROGRESS NOTE DATE OF SERVICE: 06/05/2021 CHIEF COMPLAINT: Failure to thrive, mental status changes, dementia, Parkinson disease with urinary tract infection. HISTORY OF PRESENT ILLNESS: This lady has been stable overnight with no new findings. PHYSICAL EXAM: Cardiac exam is unremarkable. The chest is clear. Abdomen is soft. Extremities are unchanged. IMPRESSION: 1. Dementia. 2. Parkinson disease. 3. Failure to thrive with malnutrition. PLAN: IV fluids and work on discharge planning. MMODL / IJN: [id number] /
--- NOTE | 2021-06-05 18:29 | HP ---
HISTORY AND PHYSICAL CHIEF COMPLAINT: General debility, failure to thrive, dementia. HISTORY OF PRESENT ILLNESS: This is another admission for this 86-year-old white female with progressive Parkinson disease who is being maintained at home for many years by her family. Her a year or 2 ago. She has become progressively more weak and now confused. The daughter called that she did not feel that the patient was any longer safe at home and the family could not continue to provide her care and there was nobody who could be with her around the clock. REVIEW OF SYSTEMS: Review of systems is not obtainable. Past medical history, family history, personal and social histories are all unobtainable. She has been on folic acid and Ropinirole at night. She has been on memantine and donepezil. ALLERGIES: SHE HAS ALLERGIES INCLUDE MORPHINE AND NICKEL. She has been diagnosed in the past as having pulmonary fibrosis, but this is not present as a significant problem for her. She has never smoked or drank. PHYSICAL EXAMINATION: Blood pressure is 108/79 with a pulse of 70, respirations of 20 and she is afebrile. In GENERAL she appeared to be pale, weak, asthenic and lethargic. HEENT: Head, eyes, ears, nose and mouth are normal. CHEST is clear. CARDIAC exam demonstrates what sounds like sinus rhythm with bradycardia. ABDOMEN is soft and no masses. EXTREMITIES demonstrates very poor muscle bulk and some contractures in the knees and hips. NEUROLOGICALLY: She is lethargic and confused. IMPRESSION: 1. Mental status changes. 2. General debility. 3. Failure to thrive. 4. Parkinson's disease. 5. Dementia. 6. Urinary tract infection. PLAN: 1. Bed rest. 2. IV fluids. 3. Treat for urinary tract infection. 4. Critical Care Cns referral for placement. MMODL / IJN: [id number] /
[2021-06-05] MEDS: SODIUM CHLORIDE 0.9% 1,000 ML IV SCH (20:23)
[2021-06-05] MEDS: MEMANTINE 10 MG TAB PO SCH (20:28)
[2021-06-05] MEDS: DONEPEZIL 10 MG TAB PO SCH (20:28)
[2021-06-06] MEDS: ACETAMINOPHEN TAB 325 MG TAB PO PRN ×2 (00:37→20:54)
[2021-06-06] MEDS: SODIUM CHLORIDE 0.9% 1,000 ML IV SCH ×2 (03:26→20:57)
[2021-06-06] MEDS: LEVOTHYROXINE 75 MCG TAB PO SCH (05:51)
[2021-06-06] MEDS: MEMANTINE 10 MG TAB PO SCH ×2 (09:03→20:57)
--- NOTE | 2021-06-06 12:12 | CDI ---
Documentation Clarification Form Date: 06/06/2021 11:33:42 AM From: Ceci Hatfield RN CCDS Admit Date: 06/04/2021 08:03:00 PM Patient Name: Salena Gonzalez Visit Number: [id number] Discharge Date: ATTENTION: The Clinical Documentation Specialists (CDI) and [facility] Coding Staff appreciate your assistance in clarifying documentation. Please respond to the clarification below the line at the bottom and electronically sign. The CDI & [facility] Coding staff will review the response and follow-up if needed. Please note: Queries are made part of the Legal Health Record. If you have any questions, please contact the author of this message via ITS. Dr. Stephen Harvey Your patient has the documented symptom of Mental Status Changes 06/05, H&P. Additional clarification regarding the etiology/cause of this symptom is requested. History/Risk Factors: 86-year-old female presents to the ED with increased fatigue and sleeping more the last few weeks. Patient fell and hit her head a week prior to presentation. Medical History: Dementia, 3-4L oxygen at home sometimes and lung disease. Clinical Indicators: VSS: 06/04 B/P 137/70, HR 84, RR 20. Temp 98.2 F Oral, SpO2 95% ra Labs:06/04 Wbc 11.4 CXR: 06/04 Right sided pneumonic infiltrates are increased compared to old exam. Urine Culture: 06/04 Gram Neg Bacilli Brain CT: 06/04 Cerebral atrophy. Treatment: 06/04 Ceftriaxone Sodium 1gm IVPB x 1; 06/05 Ceftriaxone Sodium 1 gm IVPB Q24HR. Please clarify the etiology of the symptom of Mental Status Changes. [ ] Metabolic Encephalopathy due to UTI. [ ] Other condition (please specify) [ ] Unable to determine (Template Last Revised: December 2020) MTDD
--- NOTE | 2021-06-06 12:31 | CDI ---
Documentation Clarification Form Date: 06/06/2021 12:14:23 PM From: Ceci Hatfield RN CCDS Admit Date: 06/04/2021 08:03:00 PM Patient Name: Salena Gonzalez Visit Number: [id number] Discharge Date: ATTENTION: The Clinical Documentation Specialists (CDI) and [facility] Coding Staff appreciate your assistance in clarifying documentation. Please respond to the clarification below the line at the bottom and electronically sign. The CDI & [facility] Coding staff will review the response and follow-up if needed. Please note: Queries are made part of the Legal Health Record. If you have any questions, please contact the author of this message via ITS. Dr. Stephen Harvey Pneumonia is documented ED note, 06/04, but is not noted in subsequent documentation. Clarification is requested. History/Risk Factors: 86-year-old female presents to the ED with increased fatigue and sleeping more the last few weeks. Patient fell and hit her head a week prior to presentation. Medical History: Dementia, 3-4L oxygen at home sometimes and lung disease. Clinical Indicators: VSS: 06/04 B/P 137/70, HR 84, RR 20. Temp 98.2 F Oral, SpO2 95% ra Labs:06/04 Wbc 11.4 CXR: 06/04 Right sided pneumonic infiltrates are increased compared to old exam. Urine Culture: 06/04 Gram Neg Bacilli Treatment: 06/04 Ceftriaxone Sodium 1gm IVPB x 1; 06/05 Ceftriaxone Sodium 1 gm IVPB Q24HR. Please clarify if the Pneumonia is: [ ] Pneumonia confirmed, remains under treatment [ ] Pneumonia confirmed, resolved [ ] Pneumonia ruled out [ ] Other condition, please specify [ ] Unable to determine (Template Last Revised: January 2021) MTDD
[2021-06-06 13:45] VITALS: BMI 20.2
[2021-06-06] MEDS: DONEPEZIL 10 MG TAB PO SCH (20:57)
--- NOTE | 2021-06-06 21:15 | PN ---
PROGRESS NOTE CHIEF COMPLAINT: General debility and failure to thrive with dementia and Parkinson disease. HISTORY OF PRESENT ILLNESS: This lady is awake, but extremely weak. It is not entirely clear how oriented she is. She has been made aware of the fact that she will be set up for long-term care. Family has requested that hospice be consulted. This will be done. PHYSICAL EXAMINATION: She remains very asthenic and pale. She is weak. Chest is clear. Cardiac exam is normal. The abdomen is flat and soft. IMPRESSION: 1. General debility. 2. Dementia. 3. Parkinson's disease. PLAN: 1. Physical therapy. 2. Discharge planning. 3. Hospice referral. MMGUTIERREZL / IJN: [id number] /
--- NOTE | 2021-06-06 23:30 | MISC ---
MISCELLANOUS REPORT OTHER CONDITION: Parkinson's disease and dementia, Alzheimer's type. MMODL / IJN: [id number] /
--- NOTE | 2021-06-06 23:30 | MISC ---
MISCELLANOUS REPORT Pneumonitis, confirmed under treatment. MMODL / IJN: [id number] /
[2021-06-07] MEDS: SODIUM CHLORIDE 0.9% 1,000 ML IV SCH (05:30)
[2021-06-07] MEDS: LEVOTHYROXINE 75 MCG TAB PO SCH (06:15)
[2021-06-07] MEDS: MEMANTINE 10 MG TAB PO SCH (07:35)
[2021-06-07 07:53] VITALS: RESP 18
--- NOTE | 2021-06-07 13:47 | P.DS ---
Providers Date of admission: 06/04/21 20:03 Attending physician: Stephen Harvey Primary care physician: Stephen Harvey Hospital Course: Final diagnosis Acute UTI present on admission secondary to E. coli Right lower lobe pneumonia possibly coming to acute Dementia Parkinson's Hypothyroidism Elevated AST possibly mild hepatitis History of pulmonary embolism History of pulmonary fibrosis History of syncope DJD No code no CPR event Discharge disposition the patient be discharged in a stable pressure the guarded prognosis and ECF with the [facility] total time taken is 35 minutes History of present illness This 86-year-old woman with a past medical history multiple medical problems being followed by Dr. Harvey in the outpatient was admitted features of acute UTI and as well as acute right lower pneumonia patient treated antibiotics. E. coli grown from the urine culture. Patient treated symptomatically. The patient is currently no code no subcu no event. Family also requested hospice care at this time. On exam vitals are stable cardio S1 and S2 normal abdomen soft no system no focal deficit. Patient be transferred to [facility] under the care of Dr. Harvey for continued care. See medication reconciliation sheet for list of medications. Patient Condition at Discharge: Serious Plan - Discharge Summary Discharge Rx Participant: No New Discharge Prescriptions: New Cefuroxime Axetil [Ceftin] 500 mg PO BID 3 Days #6 tab Acetaminophen Tab [Tylenol] 650 mg PO Q6HR PRN tab PRN Reason: Mild Pain Or Fever > 100.5 Continue Levothyroxine Sodium [Synthroid] 150 mcg PO DAILY Donepezil HCl [Aricept] 10 mg PO HS Memantine HCl 10 mg PO BID rOPINIRole HCL [Requip] 0.5 mg PO HS Discharge Medication List Levothyroxine Sodium [Synthroid] 150 mcg PO DAILY 09/18/19 [History] Donepezil HCl [Aricept] 10 mg PO HS 06/04/21 [History] Memantine HCl 10 mg PO BID 06/04/21 [History] rOPINIRole HCL [Requip] 0.5 mg PO HS 06/04/21 [History] Acetaminophen Tab [Tylenol] 650 mg PO Q6HR PRN tab 06/07/21 [Rx] Cefuroxime Axetil [Ceftin] 500 mg PO BID 3 Days #6 tab 06/07/21 [Rx] Follow up Appointment(s)/Referral(s): Stephen Harvey MD [Primary Care Provider] - 1-2 days [facility], [NON-STAFF] - As Needed Hospice,[facility] [NON-STAFF] - As Needed Activity/Diet/Wound Care/Special Instructions: Diet cardiac Activity as tolerated
[2021-06-07 14:58] VITALS: BP 125/79; PULSE 75; TEMP 99.1
--- NOTE | 2021-06-12 07:33 | DS ---
DISCHARGE SUMMARY DATE OF SERVICE: 06/07/2021 CHIEF COMPLAINT: General debility, failure to thrive and dementia. HISTORY OF PRESENT ILLNESS AND PHYSICAL EXAM: Details of this lady's history and physical can be found in the initial workup. LABORATORY STUDIES: While she was in the hospital she had laboratory studies, details of which can be found in the laboratory section of her chart. COURSE IN HOSPITAL: After admission she was placed on bedrest and started on intravenous fluids and had frequent monitoring of her vital signs and neurologic status. In the meantime, arrangements were made for her to be transferred to extended care facility. A bed was available on the . FINAL DIAGNOSIS: 1. Mental status changes. 2. Dementia. 3. Parkinson disease. 4. Asthenia. OPERATIONS: None. CONSULTATION: None. She is improved. MMODL / ANNALISAN: [id number] /
== END 2021-06-07 17:33 | DRG 689 ==
LOC: EC 16:28 → 6NMEDSUR 20:03 → 4SSUR 20:24
PROVIDERS: ADMIT Family Medicine; ATTEND Family Medicine
DX: N39.0 Urinary tract infection, site not specified (principal); J18.9 Pneumonia, unspecified organism; E46 Unspecified protein-calorie malnutrition; G31.83 Neurocognitive disorder with Lewy bodies; F02.80 Dementia in other diseases classified elsewhere, unspecified severity, without behavioral disturbance, psychotic disturbance, mood disturbance, and anxiety; J84.10 Pulmonary fibrosis, unspecified; R62.7 Adult failure to thrive; M19.90 Unspecified osteoarthritis, unspecified site; L25.9 Unspecified contact dermatitis, unspecified cause; Z79.890 Hormone replacement therapy; Z86.711 Personal history of pulmonary embolism; R68.2 Dry mouth, unspecified; R53.83 Other fatigue; E03.9 Hypothyroidism, unspecified; B96.20 Unspecified Escherichia coli [E. coli] as the cause of diseases classified elsewhere; R74.01 Elevation of levels of liver transaminase levels; R53.81 Other malaise; K75.9 Inflammatory liver disease, unspecified
CPT/HCPCS: 36415; 70450; 71045; 80053; 81001; 82550; 83605; 83735; 84484; 85025; 85610; 85730; 87040; 87077; 87086; 87186; 87635; 93005; 99285